=== PATIENT | female | born 1990 | race American Indian/Alaskan Native ===

== ENCOUNTER 2018-12-31 06:46 | Emergency (ER) | payer OTHER ==
[2018-12-31 07:15] LABS: Basophils # (Auto) 0.1 K/mm3 (0.0-0.1); Basophils % (Auto) 1.1 % (0.0-1.8); Eosinophils # (Auto) 0.6 K/mm3 (0.0-0.4); Eosinophils % (Auto) 5.7 % (0.0-4.3); Hematocrit 34.6 % (30.3-42.9); Hemoglobin 11.7 gm/dl (10.1-14.3); Lymphocytes # (Auto) 2.9 K/mm3 (1.2-5.4); Lymphocytes % (Auto) 26.8 % (13.4-35.0); Mean Corpuscular HGB Conc 34 % (30-34); Mean Corpuscular Volume 88 fl (79-97); Monocytes # (Auto) 0.8 K/mm3 (0.0-0.8); Monocytes % (Auto) 7.2 % (0.0-7.3); Platelet Count 293 K/mm3 (140-440); Red Blood Count 3.96 M/mm3 (3.65-5.03); Red Cell Distribution Width 18.6 % (13.2-15.2)
[2018-12-31 07:25] LABS: Bacteria,Urine 2+ /HPF (Negative); Bilirubin,Urine NEG (Negative); Blood,Urine SM (Negative); Color,Urine Yellow (Yellow); Mucus,Urine FEW /HPF; Protein,Urine <15 mg/dL mg/dL (Negative); Urobilinogen,Urine < 2.0 mg/dL (<2.0)
[2018-12-31 07:35] LABS: Alanine Aminotransferase 7 units/L (7-56); Albumin 4.3 g/dL (3.9-5); BUN/Creatinine Ratio 11; Blood Urea Nitrogen 8 mg/dL (7-17); Calcium 8.7 mg/dL (8.4-10.2); Hemolysis Index 11
[2018-12-31] MEDS ORDERED: FLAGYL PO ONE (08:34)
--- NOTE | 2018-12-31 08:42 | Emergency Department Report ---
ED Female HPI - General Chief complaint: Abdominal Pain Stated complaint: ABD PAIN VAG PAIN Time Seen by Provider: 12/31/18 08:22 Source: patient Mode of arrival: Ambulatory Limitations: No Limitations - History of Present Illness Initial comments: This is a 28-year-old female presents to ED complaining of vaginal discharge times one week. She also states that she had some dysuria. She states that normal respiratory cycle. She denies pelvic pain, fever, nausea vomiting or any other problems. MD Complaint: vaginal discharge, dysuria -: Gradual Are you Now?: No Last Menstrual Period: 12/18/18 EDC: 09/24/19 Associated Symptoms: vaginal discharge - Related Data Sexually active: No Previous Rx's Medication Instructions Recorded Last Taken Type Fluconazole [Diflucan TAB] 150 mg PO DAILY #2 tablet 12/31/18 Unknown Rx Nitrofurantoin Monohyd/M-Cryst 100 mg PO BID #14 capsule 12/31/18 Unknown Rx [Macrobid 100 mg Capsule] Allergies Allergy/AdvReac Type Severity Reaction Status Date / Time No Known Allergies Allergy Unverified 12/31/18 06:51 ED Review of Systems ROS: Stated complaint: ABD PAIN VAG PAIN Other details as noted in HPI Comment: All other systems reviewed and negative ED Past Medical Hx - Past Medical History Previous Medical History?: No - Surgical History Past Surgical History?: No - Social History Smoking Status: Former Smoker Substance Use Type: None - Medications Home Medications: Home Medications Medication Instructions Recorded Confirmed Last Taken Type Fluconazole [Diflucan TAB] 150 mg PO DAILY #2 tablet 12/31/18 Unknown Rx Nitrofurantoin Monohyd/M-Cryst 100 mg PO BID #14 capsule 12/31/18 Unknown Rx [Macrobid 100 mg Capsule] ED Physical Exam - General Limitations: No Limitations General appearance: alert, in no apparent distress - Head Head exam: Present: atraumatic, normocephalic - Eye Eye exam: Present: normal appearance - ENT ENT exam: Present: mucous membranes moist - Neck Neck exam: Present: normal inspection - Respiratory Respiratory exam: Present: normal lung sounds bilaterally. Absent: respiratory distress - Cardiovascular Cardiovascular Exam: Present: regular rate, normal rhythm. Absent: systolic murmur, diastolic murmur, rubs, gallop - GI/Abdominal GI/Abdominal exam: Present: soft, normal bowel sounds. Absent: distended, tenderness, guarding - Extremities Exam Extremities exam: Present: normal inspection - Back Exam Back exam: Present: normal inspection - Neurological Exam Neurological exam: Present: alert, oriented X3 - Psychiatric Psychiatric exam: Present: normal affect, normal mood - Skin Skin exam: Present: warm, dry, intact, normal color. Absent: rash ED Course Vital Signs 12/31/18 09:28 Temperature 97.9 F Pulse Rate 77 Respiratory 18 Rate Blood Pressure 130/72 [right] O2 Sat by Pulse 98 Oximetry ED Medical Decision Making - Lab Data Result diagrams: 12/31/18 07:05 12/31/18 07:05 - Medical Decision Making 28-year-old female presents with a vaginitis/urinary tract infection. Patient is presenting with candidate as seen in the urinalysis. Will treat patient for UTI, Sandi and BV Urinalysis is positive for use, bacteria. Patient denies any STDs stating she does not have an STD. Still advised patient to follow-up with [facility] for an STD screening. Discussed with patient her urinalysis results. Discussed follow-up at [facility] for [employer] exam Pap. Vital signs normal patient is in no acute distress. Critical care attestation.: If time is entered above; I have spent that time in minutes in the direct care of this critically ill patient, excluding procedure time. ED Disposition Clinical Impression: Vaginitis, Vulvovaginal candidiasis Disposition: TO HOME OR SELFCARE Is pt being admited?: No Does the pt Need Aspirin: No Condition: Stable Instructions: Bacterial Vaginosis (ED), Urinary Tract Infection in Women (ED), Vulvovaginal Candidiasis (ED), Abdominal Pain (ED) Additional Instructions: Make sure to follow up with the primary care physician as discussed. Take all your medications as you've been prescribed. If you have any worsening symptoms or develop new symptoms please return to ED immediately. Prescriptions: Fluconazole [Diflucan TAB] 150 mg PO DAILY #2 tablet Nitrofurantoin Monohyd/M-Cryst [Macrobid 100 mg Capsule] 100 mg PO BID #14 capsule Referrals: [facility] [Outside] - 3-5 Days [facility] [Outside] - 3-5 Days Forms: Work/School Release Form(ED) Time of Disposition: 08:50
[2018-12-31 09:29] VITALS: BP 130/72
== END 2018-12-31 09:28 | disposition home or self-care (01) ==
LOC: ED 06:46
DX: N76.0 Acute vaginitis (principal); B37.3 Candidiasis of vulva and vagina; Z87.891 Personal history of nicotine dependence
CPT/HCPCS: 36415; 80053; 81001; 84703; 85025; 99283

== ENCOUNTER 2019-02-19 19:35 | Emergency (ER) | payer OTHER ==
--- NOTE | 2019-02-19 20:26 | Emergency Department Report ---
Blank Doc - Documentation Documentation: 28 F C/O OF NAUSEA, VOMITING, DIARRHEA AND LOWER ABDOMINAL PAIN STARTED AFTER EATING POPPA MEGHAN PIJAKOB LAST NIGHT (NO ONE ELSE GOT SICK WHO ATE THE PIZZA). C/O OF DIZZINESS AND WEAKNESS. CALLED EMS TO HOME EARLIER BUT DIDNT TO WITH THEM. PLAN LABS AND ORTHOSTATICS
[2019-02-19 20:43] LABS: Basophils # (Auto) 0.1 K/mm3 (0.0-0.1); Basophils % (Auto) 1.1 % (0.0-1.8); Eosinophils # (Auto) 0.1 K/mm3 (0.0-0.4); Eosinophils % (Auto) 0.9 % (0.0-4.3); Hematocrit 36.8 % (30.3-42.9); Hemoglobin 12.5 gm/dl (10.1-14.3); Lymphocytes # (Auto) 1.8 K/mm3 (1.2-5.4); Lymphocytes % (Auto) 20.6 % (13.4-35.0); Mean Corpuscular HGB Conc 34 % (30-34); Mean Corpuscular Volume 90 fl (79-97); Monocytes # (Auto) 0.4 K/mm3 (0.0-0.8); Monocytes % (Auto) 5.1 % (0.0-7.3); Platelet Count 325 K/mm3 (140-440); Red Cell Distribution Width 14.8 % (13.2-15.2)
[2019-02-19 21:08] LABS: Alanine Aminotransferase 8 units/L (7-56); Albumin 4.1 g/dL (3.9-5); BUN/Creatinine Ratio 10; Blood Urea Nitrogen 6 mg/dL (7-17); Calcium 8.7 mg/dL (8.4-10.2); Hemolysis Index 4
[2019-02-19] MEDS ORDERED: NACL 0.9% 1000 ML 1,000 ML IV ONE (22:26)
[2019-02-19] MEDS ORDERED: ZOFRAN IV ONE (22:26)
[2019-02-19] MEDS ORDERED: BENTYL IM ONE (22:26)
--- NOTE | 2019-02-19 22:39 | Emergency Department Report ---
ED General Adult HPI - General Chief complaint: Dizziness Stated complaint: EMESIS/ABD CRAMPS Time Seen by Provider: 02/19/19 20:21 Source: patient Mode of arrival: Ambulatory Limitations: No Limitations - History of Present Illness Initial comments: 28 F C/O OF NAUSEA, VOMITING, DIARRHEA AND LOWER ABDOMINAL PAIN STARTED AFTER EATING POPDIONI URBINA LAST NIGHT (NO ONE ELSE GOT SICK WHO ATE THE PIZZA). C/O OF DIZZINESS AND WEAKNESS. CALLED EMS TO HOME EARLIER BUT DID NOT WANT TRANSPORT WITH EMS. Onset/Timin -: days(s) Location: abdomen Radiation: non-radiation Severity scale (0 -10): 5 Quality: aching Consistency: constant Improves with: none Worsens with: eating Associated Symptoms: nausea/vomiting Treatments Prior to Arrival: none - Related Data Previous Rx's Medication Instructions Recorded Last Taken Type Fluconazole [Diflucan TAB] 150 mg PO DAILY #2 tablet 12/31/18 Unknown Rx Nitrofurantoin Monohyd/M-Cryst 100 mg PO BID #14 capsule 12/31/18 Unknown Rx [Macrobid 100 mg Capsule] Dicyclomine [Bentyl] 10 mg PO QID PRN #30 capsule 02/20/19 Unknown Rx Ondansetron [Zofran Odt] 4 mg PO Q8HR #12 tab.rapdis 02/20/19 Unknown Rx Allergies Allergy/AdvReac Type Severity Reaction Status Date / Time No Known Allergies Allergy Unverified 12/31/18 06:51 ED Review of Systems ROS: Stated complaint: EMESIS/ABD CRAMPS Other details as noted in HPI Constitutional: denies: chills, fever Eyes: denies: eye pain, eye discharge, vision change ENT: denies: ear pain, throat pain Respiratory: denies: cough, shortness of breath, wheezing Cardiovascular: denies: chest pain, palpitations Endocrine: no symptoms reported Gastrointestinal: abdominal pain, nausea, vomiting, diarrhea. denies: constipation, hematemesis, melena, hematochezia Genitourinary: denies: urgency, dysuria, discharge Musculoskeletal: denies: back pain, joint swelling, arthralgia Skin: denies: rash, lesions Neurological: denies: headache, weakness, paresthesias Psychiatric: denies: anxiety, depression Hematological/Lymphatic: as per HPI ED Past Medical Hx - Social History Smoking Status: Never Smoker - Medications Home Medications: Home Medications Medication Instructions Recorded Confirmed Last Taken Type Fluconazole [Diflucan TAB] 150 mg PO DAILY #2 tablet 12/31/18 Unknown Rx Nitrofurantoin Monohyd/M-Cryst 100 mg PO BID #14 capsule 12/31/18 Unknown Rx [Macrobid 100 mg Capsule] Dicyclomine [Bentyl] 10 mg PO QID PRN #30 capsule 02/20/19 Unknown Rx Ondansetron [Zofran Odt] 4 mg PO Q8HR #12 tab.rapdis 02/20/19 Unknown Rx ED Physical Exam - General Limitations: No Limitations General appearance: alert, in no apparent distress - Head Head exam: Present: atraumatic, normocephalic - Eye Eye exam: Present: normal appearance, PERRL, EOMI Pupils: Present: normal accommodation - ENT ENT exam: Present: mucous membranes moist - Neck Neck exam: Present: normal inspection, full ROM. Absent: tenderness, meningismus, lymphadenopathy, thyromegaly - Respiratory Respiratory exam: Present: normal lung sounds bilaterally. Absent: respiratory distress, wheezes, rales, rhonchi, stridor, chest wall tenderness - Cardiovascular Cardiovascular Exam: Present: regular rate, normal rhythm, normal heart sounds. Absent: systolic murmur, diastolic murmur, rubs, gallop - GI/Abdominal GI/Abdominal exam: Present: soft, normal bowel sounds. Absent: distended, tenderness, guarding, rebound, rigid, bruit, hernia - Rectal Rectal exam: Present: deferred - Extremities Exam Extremities exam: Present: normal inspection, full ROM, normal capillary refill. Absent: tenderness, pedal edema, joint swelling, calf tenderness - Back Exam Back exam: Present: normal inspection, full ROM. Absent: tenderness, CVA tenderness (R), CVA tenderness (L), muscle spasm, paraspinal tenderness, rash noted - Neurological Exam Neurological exam: Present: alert, oriented X3, CN II-XII intact, normal gait, reflexes normal. Absent: motor sensory deficit - Psychiatric Psychiatric exam: Present: normal affect, normal mood - Skin Skin exam: Present: warm, dry, intact, normal color. Absent: rash ED Course Vital Signs 02/19/19 02/19/19 19:38 20:21 Temperature 98.1 F 98.1 F Pulse Rate 75 76 Respiratory 18 18 Rate Blood Pressure 122/85 122/85 O2 Sat by Pulse 99 98 Oximetry ED Medical Decision Making - Lab Data Result diagrams: 02/19/19 20:26 02/19/19 20:26 Labs 02/19/19 02/19/19 02/19/19 20:26 20:26 23:23 WBC 8.7 RBC 4.10 Hgb 12.5 Hct 36.8 MCV 90 MCH 31 MCHC 34 RDW 14.8 Plt Count 325 Lymph % (Auto) 20.6 [place] % (Auto) 5.1 Eos % (Auto) 0.9 Baso % (Auto) 1.1 Lymph # 1.8 [place] # 0.4 Eos # 0.1 Baso # 0.1 Seg Neutrophils % 72.3 H Seg Neutrophils # 6.3 Sodium 139 Potassium 3.5 L Chloride 100.9 Carbon Dioxide 25 Anion Gap 17 BUN 6 L Creatinine 0.6 L Estimated GFR > 60 BUN/Creatinine Ratio 10 Glucose 119 H Calcium 8.7 Total Bilirubin 0.20 AST 13 ALT 8 Alkaline Phosphatase 68 Total Protein 7.4 Albumin 4.1 Albumin/Globulin Ratio 1.2 Lipase 23 Urine Color Yellow Urine Turbidity Slightly-cloudy Urine pH 7.0 Ur Specific [place] 1.010 Urine Protein <15 mg/dl Urine Glucose (UA) Neg Urine Ketones Neg Urine Blood Neg Urine Nitrite Neg Urine Bilirubin Neg Urine Urobilinogen < 2.0 Ur Leukocyte Esterase Neg Urine WBC (Auto) 1.0 Urine RBC (Auto) 1.0 U Epithel Cells (Auto) 14.0 H Urine HCG, Qual Negative - Medical Decision Making n/v improved, abd pain resolved labs normal , no fever no chills no n/v pain is 0/10 plan: marry rizo, continue to hydrate follow up with pcp in 2-3 days return to ed if symptoms worsen. pt declines imaging , pt for dc to home in stable condition at this time. Critical care attestation.: If time is entered above; I have spent that time in minutes in the direct care of this critically ill patient, excluding procedure time. ED Disposition Clinical Impression: Nausea and vomiting Qualifiers: Vomiting type: unspecified Vomiting Intractability: non-intractable Qualified Code(s): R11.2 - Nausea with vomiting, unspecified Disposition: DC-01 TO HOME OR SELFCARE Is pt being admited?: No Does the pt Need Aspirin: No Condition: Stable Instructions: Acute Nausea and Vomiting (ED) Prescriptions: Dicyclomine [Bentyl] 10 mg PO QID PRN #30 capsule PRN Reason: abd spasm Ondansetron [Zofran Odt] 4 mg PO Q8HR #12 tab.rapdis Referrals: [facility] MD TARA [Primary Care Provider] - 3-5 Days Forms: Work/School Release Form(ED) Time of Disposition: 00:28
[2019-02-20 00:15] LABS: Bilirubin,Urine NEG (Negative); Blood,Urine NEG (Negative); Color,Urine Yellow (Yellow); Protein,Urine <15 mg/dL mg/dL (Negative); Urobilinogen,Urine < 2.0 mg/dL (<2.0)
[2019-02-20 00:18] LABS: HCG Qualitative,Urine Negative (Negative)
[2019-02-20 01:03] VITALS: BP 129/79
== END 2019-02-20 01:02 | disposition home or self-care (01) ==
LOC: ED 19:35
DX: R10.30 Lower abdominal pain, unspecified (principal); R11.2 Nausea with vomiting, unspecified; R19.7 Diarrhea, unspecified
CPT/HCPCS: 36415; 80053; 81001; 81025; 83690; 85025; 96361; 96372; 96374; 99283; J0500; J2405; J7030

== ENCOUNTER 2019-02-24 07:09 | Emergency (ER) | payer OTHER ==
[2019-02-24 07:40] VITALS: BP 133/83
--- NOTE | 2019-02-24 07:55 | Emergency Department Report ---
ED Female HPI - General Chief complaint: Urogenital-Female Stated complaint: VAGINAL DISCHARGE Source: patient Mode of arrival: Ambulatory Limitations: No Limitations - History of Present Illness Initial comments: This is a 28 year-old female who presents to the emergency room with vaginal discharge since yesterday. Her last menstrual cycle was 02/10/2019, A4, 1 and 3 miscarriages. She reports pelvic pain, back pain, urinary frequency, and urgency. She denies dysuria, nausea, vomiting, and hematuria. MD Complaint: vaginal discharge, possible STD Onset/Timin -: days(s) Location: suprapubic Radiation: non-radiating Severity: moderate Severity scale (0 -10): 7 Quality: cramping Consistency: intermittent Improves with: none Worsens with: none Are you Now?: No Last Menstrual Period: 02/10/19 EDC: 11/17/19 Associated Symptoms: vaginal discharge, abdominal pain. denies: vaginal bleeding, nausea/vomiting, fever/chills, headaches, loss of appetite, dysuria, hematuria, rash, seizure, shortness of breath, syncope, weakness - Related Data Sexually active: Yes : 6 Para: 2 A: 4 (1 & 3 miscarriages) Previous Rx's Medication Instructions Recorded Last Taken Type Fluconazole [Diflucan TAB] 150 mg PO DAILY #2 tablet 12/31/18 Unknown Rx Nitrofurantoin Monohyd/M-Cryst 100 mg PO BID #14 capsule 12/31/18 Unknown Rx [Macrobid 100 mg Capsule] Dicyclomine [Bentyl] 10 mg PO QID PRN #30 capsule 02/20/19 Unknown Rx Ondansetron [Zofran Odt] 4 mg PO Q8HR #12 tab.rapdis 02/20/19 Unknown Rx Allergies Allergy/AdvReac Type Severity Reaction Status Date / Time No Known Allergies Allergy Unverified 12/31/18 06:51 ED Review of Systems ROS: Stated complaint: VAGINAL DISCHARGE Other details as noted in HPI Constitutional: denies: chills, fever Respiratory: denies: cough, shortness of breath, wheezing Cardiovascular: denies: chest pain, palpitations Gastrointestinal: abdominal pain. denies: nausea, diarrhea Genitourinary: urgency, frequency, discharge. denies: dysuria Musculoskeletal: back pain. denies: joint swelling, arthralgia Skin: denies: rash, lesions Neurological: denies: headache, weakness, paresthesias Psychiatric: denies: anxiety, depression ED Past Medical Hx - Past Medical History Previous Medical History?: No - Surgical History Past Surgical History?: No - Social History Smoking Status: Never Smoker Substance Use Type: None - Medications Home Medications: Home Medications Medication Instructions Recorded Confirmed Last Taken Type Fluconazole [Diflucan TAB] 150 mg PO DAILY #2 tablet 12/31/18 Unknown Rx Nitrofurantoin Monohyd/M-Cryst 100 mg PO BID #14 capsule 12/31/18 Unknown Rx [Macrobid 100 mg Capsule] Dicyclomine [Bentyl] 10 mg PO QID PRN #30 capsule 02/20/19 Unknown Rx Ondansetron [Zofran Odt] 4 mg PO Q8HR #12 tab.rapdis 02/20/19 Unknown Rx ED Physical Exam - General Limitations: No Limitations General appearance: alert, in no apparent distress - Respiratory Respiratory exam: Present: normal lung sounds bilaterally. Absent: respiratory distress - Cardiovascular Cardiovascular Exam: Present: regular rate, normal rhythm. Absent: systolic murmur, diastolic murmur, rubs, gallop - GI/Abdominal GI/Abdominal exam: Present: soft, normal bowel sounds. Absent: distended, tenderness, guarding, rebound, rigid, organomegaly - External exam: Present: normal external exam Speculum exam: Present: vaginal discharge (malodorous frothy greenish yellow discharge). Absent: cervical discharge, vaginal bleeding, foreign body, tissue, laceration Bi-manual exam: Present: normal bi-manual exam - Back Exam Back exam: Absent: CVA tenderness (R), CVA tenderness (L) - Neurological Exam Neurological exam: Present: alert, oriented X3, normal gait - Psychiatric Psychiatric exam: Present: normal affect, normal mood - Skin Skin exam: Present: warm, dry, intact, normal color. Absent: rash ED Course Vital Signs 02/24/19 07:20 Temperature 98.0 F Pulse Rate 77 Respiratory 18 Rate Blood Pressure 133/83 O2 Sat by Pulse 98 Oximetry ED Medical Decision Making - Lab Data Lab Results 02/24/19 Range/Units 07:33 Urine Color Straw (Yellow) Urine Turbidity Slightly-cloudy (Clear) Urine pH 6.0 (5.0-7.0) Ur Specific [place] 1.003 (1.003-1.030) Urine Protein <15 mg/dl (Negative) mg/dL Urine Glucose (UA) Neg (Negative) mg/dL Urine Ketones Neg (Negative) mg/dL Urine Blood Neg (Negative) Urine Nitrite Neg (Negative) Urine Bilirubin Neg (Negative) Urine Urobilinogen < 2.0 (<2.0) mg/dL Ur Leukocyte Esterase Neg (Negative) Urine WBC (Auto) 1.0 (0.0-6.0) /HPF Urine RBC (Auto) < 1.0 (0.0-6.0) /HPF U Epithel Cells (Auto) 19.0 H (0-13.0) /HPF Urine Bacteria (Auto) 1+ (Negative) /HPF Urine HCG, Qual Negative (Negative) - Medical Decision Making Patient was examined by me. Vitals are stable and in no acute distress. Labs were obtained and a pelvic exam performed. Urinalysis possibly contaminated with slight epithelial cells and negative test. Wet prep negative for yeast, Trichomonas, and clue cells. Empirically treated with Rocephin 250 mg IM and azithromycin 1 g by mouth to cover gonorrhea or chlamydia. Instructed to follow up in 3-5 days for pending gonorrhea and chlamydia lab results. Discharged home in stable condition. Discussed prevention options. F/U with PCP or Health Department for full STI screening. Critical care attestation.: If time is entered above; I have spent that time in minutes in the direct care of this critically ill patient, excluding procedure time. ED Disposition Clinical Impression: Vaginal discharge, Pelvic pain, Exposure to STD Back pain Qualifiers: Back pain location: low back pain Chronicity: acute Back pain laterality: bilateral Sciatica presence: without sciatica Qualified Code(s): M54.5 - Low back pain Disposition: DC- TO HOME OR SELFCARE Is pt being admited?: No Does the pt Need Aspirin: No Condition: Stable Instructions: Sexually Transmitted Diseases (ED), Safe Sex (ED) Additional Instructions: Avoid drinking alcohol while taking antibiotics and for 24 hours after completion. Continue safe sexual intercourse. Follow up with Primary Care Provider or health department. Referrals: CURRY WADSWORTH MD [Primary Care Provider] - 3-5 Days [facility] [place] [Outside] - 3-5 Days [facility] [Provider Group] - 3-5 Days [facility] [Provider Group] - 3-5 Days [facility] [Provider Group] - 3-5 Days Forms: Work/School Release Form(ED), Accompanied Note Time of Disposition: 08:40
[2019-02-24 07:58] LABS: Bacteria,Urine 1+ /HPF (Negative); Bilirubin,Urine NEG (Negative); Blood,Urine NEG (Negative); Color,Urine Straw (Yellow); HCG Qualitative,Urine Negative (Negative); Protein,Urine <15 mg/dL mg/dL (Negative); RBC,Urine < 1.0 /HPF (0.0-6.0); Urobilinogen,Urine < 2.0 mg/dL (<2.0)
[2019-02-24] MEDS ORDERED: ZITHROMAX PO ONE (08:32)
[2019-02-24] MEDS ORDERED: XYLOCAINE 1% MPF 5 mL INFILTRATI ONE (08:32)
[2019-02-24] MEDS ORDERED: ROCEPHIN IM ONE (08:32)
== END 2019-02-24 09:13 | disposition home or self-care (01) ==
LOC: ED 07:09
DX: N89.8 Other specified noninflammatory disorders of vagina (principal); R10.2 Pelvic and perineal pain; M54.9 Dorsalgia, unspecified; Z20.2 Contact with and (suspected) exposure to infections with a predominantly sexual mode of transmission
CPT/HCPCS: 81001; 81025; 87210; 87591; J0696; 96372

== ENCOUNTER 2019-03-26 07:41 | Emergency (ER) | payer BC, OTHER ==
[2019-03-26 07:51] VITALS: BP 146/84
[2019-03-26 08:07] LABS: Basophils # (Auto) 0.1 K/mm3 (0.0-0.1); Basophils % (Auto) 1.3 % (0.0-1.8); Eosinophils # (Auto) 0.3 K/mm3 (0.0-0.4); Eosinophils % (Auto) 3.5 % (0.0-4.3); Hematocrit 34.3 % (30.3-42.9); Hemoglobin 11.8 gm/dl (10.1-14.3); Lymphocytes # (Auto) 3.1 K/mm3 (1.2-5.4); Lymphocytes % (Auto) 38.6 % (13.4-35.0); Mean Corpuscular HGB Conc 35 % (30-34); Mean Corpuscular Volume 90 fl (79-97); Monocytes # (Auto) 0.6 K/mm3 (0.0-0.8); Monocytes % (Auto) 7.8 % (0.0-7.3); Platelet Count 258 K/mm3 (140-440); Red Blood Count 3.79 M/mm3 (3.65-5.03); Red Cell Distribution Width 14.8 % (13.2-15.2)
[2019-03-26 08:24] LABS: Alanine Aminotransferase 12 units/L (7-56); Albumin 4.3 g/dL (3.9-5); BUN/Creatinine Ratio 17; Blood Urea Nitrogen 10 mg/dL (7-17); Calcium 9.4 mg/dL (8.4-10.2); Hemolysis Index 5
[2019-03-26 08:37] LABS: Bacteria,Urine 1+ /HPF (Negative); Bilirubin,Urine NEG (Negative); Blood,Urine SM (Negative); Color,Urine Yellow (Yellow); Mucus,Urine FEW /HPF; Protein,Urine <15 mg/dL mg/dL (Negative); Urobilinogen,Urine < 2.0 mg/dL (<2.0)
--- NOTE | 2019-03-26 11:08 | Ultrasound Report ---
CLINICAL DATA: See reason for exam. pelvic pain TECHNICAL DATA: Ultrasound uterus, real time with image documentation, and maternal evaluation after f irst trimester (> or = 14 weeks 0 days), transabdominal and transvaginal approach; single or first ge station. FINDINGS: Gestational sac is present measuring 0.8 cm in diameter estimated gestational age of 5 weeks 4 days, however no evidence of a yolk sac or pole. The right ovary is normal. 2.3 cm left ovarian cyst is present. IMPRESSION. 1. Small gestational sac as noted recommend clinical correlation and follow-up ultrasound to determin e if intrauterine is viable 2. No convincing evidence of an ectopic Signer Name: Christophe Osborn MD Signed: 03/26/2019 11:03 AM Workstation Name: [id number]
--- NOTE | 2019-03-26 11:27 | Emergency Department Report ---
ED Abdominal Pain HPI - General Chief Complaint: Abdominal Pain Stated Complaint: STOMACH PAIN Time Seen by Provider: 03/26/19 08:19 Source: patient Mode of arrival: Ambulatory Limitations: No Limitations - History of Present Illness Initial Comments: Isis is a 28-year-old female who presents with abdominal pain and nausea. She had a home positive home test. Last menstrual cycle 2 months ago. Nondescript abdominal pain which was transient. abdominal pain. denies fever. denies vaginal bleeding. MD Complaint: abdominal pain -: Gradual, days(s) (1) Severity: mild Quality: cramping, dull Consistency: constant Improves With: nothing Worsens With: nothing Associated Symptoms: nausea - Related Data Previous Rx's Medication Instructions Recorded Last Taken Type Fluconazole [Diflucan TAB] 150 mg PO DAILY #2 tablet 12/31/18 Unknown Rx Nitrofurantoin Monohyd/M-Cryst 100 mg PO BID #14 capsule 12/31/18 Unknown Rx [Macrobid 100 mg Capsule] Dicyclomine [Bentyl] 10 mg PO QID PRN #30 capsule 02/20/19 Unknown Rx Ondansetron [Zofran Odt] 4 mg PO Q8HR #12 tab.rapdis 02/20/19 Unknown Rx Allergies Allergy/AdvReac Type Severity Reaction Status Date / Time No Known Allergies Allergy Unverified 12/31/18 06:51 ED Review of Systems ROS: Stated complaint: STOMACH PAIN Other details as noted in HPI Comment: All other systems reviewed and negative Constitutional: denies: fever, malaise Respiratory: denies: cough Cardiovascular: denies: chest pain ED Past Medical Hx - Past Medical History Previous Medical History?: No - Surgical History Past Surgical History?: No - Social History Smoking Status: Never Smoker Substance Use Type: None - Medications Home Medications: Home Medications Medication Instructions Recorded Confirmed Last Taken Type Fluconazole [Diflucan TAB] 150 mg PO DAILY #2 tablet 12/31/18 Unknown Rx Nitrofurantoin Monohyd/M-Cryst 100 mg PO BID #14 capsule 12/31/18 Unknown Rx [Macrobid 100 mg Capsule] Dicyclomine [Bentyl] 10 mg PO QID PRN #30 capsule 02/20/19 Unknown Rx Ondansetron [Zofran Odt] 4 mg PO Q8HR #12 tab.rapdis 06/23/19 Unknown Rx ED Physical Exam - General Limitations: No Limitations General appearance: alert, in no apparent distress - Head Head exam: Present: atraumatic, normocephalic - Eye Eye exam: Present: normal appearance - ENT ENT exam: Present: mucous membranes moist - Neck Neck exam: Present: normal inspection, full ROM - Respiratory Respiratory exam: Present: normal lung sounds bilaterally. Absent: respiratory distress, wheezes, rales, rhonchi - Cardiovascular Cardiovascular Exam: Present: regular rate, normal rhythm, normal heart sounds. Absent: systolic murmur, diastolic murmur, rubs, gallop - GI/Abdominal GI/Abdominal exam: Present: soft, normal bowel sounds. Absent: distended, guarding, rebound - Extremities Exam Extremities exam: Present: normal inspection - Back Exam Back exam: Present: normal inspection - Neurological Exam Neurological exam: Present: alert, oriented X3 - Psychiatric Psychiatric exam: Present: normal affect, normal mood - Skin Skin exam: Present: warm, dry, intact, normal color. Absent: rash ED Course Vital Signs 03/26/19 07:46 Temperature 98.4 F Pulse Rate 82 Respiratory 18 Rate Blood Pressure 146/84 O2 Sat by Pulse 100 Oximetry ED Medical Decision Making - Lab Data Result diagrams: 03/26/19 07:56 03/26/19 07:56 - Radiology Data Radiology results: report reviewed Ultrasound: Positive gestational sac without concurrent evidence of IUP viability - Medical Decision Making Latera has new diagnosis of . HCG level above the indiscriminate zone. I strongly encourage return in 2 days for repeat ultrasound to determine viability and rule out ectopic . Critical care attestation.: If time is entered above; I have spent that time in minutes in the direct care of this critically ill patient, excluding procedure time. ED Disposition Clinical Impression: , Abdominal pain Disposition: DC-01 TO HOME OR SELFCARE Is pt being admited?: No Does the pt Need Aspirin: No Condition: Stable Additional Instructions: Please return to the ER in 2 days for a repeat ultrasound. The ultrasound was unable to determine viability. We must also rule out tubal .
== END 2019-03-26 11:46 | disposition home or self-care (01) ==
LOC: ED 07:41
DX: O26.891 Other specified pregnancy related conditions, first trimester (principal); R10.2 Pelvic and perineal pain; R11.0 Nausea; Z3A.01 Less than 8 weeks gestation of pregnancy
CPT/HCPCS: 36415; 76801; 76817; 80053; 81001; 84702; 85025

== ENCOUNTER 2019-03-30 07:41 | Emergency (ER) | payer BC ==
[2019-03-30 07:52] VITALS: BP 137/83
[2019-03-30] MEDS ORDERED: TYLENOL PO ONE (08:31)
[2019-03-30 08:47] LABS: Basophils # (Auto) 0.1 K/mm3 (0.0-0.1); Basophils % (Auto) 1.3 % (0.0-1.8); Eosinophils # (Auto) 0.3 K/mm3 (0.0-0.4); Eosinophils % (Auto) 4.3 % (0.0-4.3); Hematocrit 34.5 % (30.3-42.9); Hemoglobin 11.6 gm/dl (10.1-14.3); Lymphocytes # (Auto) 2.4 K/mm3 (1.2-5.4); Lymphocytes % (Auto) 30.4 % (13.4-35.0); Mean Corpuscular HGB Conc 34 % (30-34); Mean Corpuscular Volume 92 fl (79-97); Monocytes # (Auto) 0.6 K/mm3 (0.0-0.8); Monocytes % (Auto) 7.8 % (0.0-7.3); Platelet Count 249 K/mm3 (140-440); Red Blood Count 3.75 M/mm3 (3.65-5.03); Red Cell Distribution Width 14.6 % (13.2-15.2)
--- NOTE | 2019-03-30 08:49 | Emergency Department Report ---
HPI - General Chief Complaint: Abdominal Pain Time Seen by Provider: 03/30/19 08:18 - HPI HPI: 28-year-old -Congolese female presents to the emergency department with some mid abdominal pain and for reevaluation of the viability of her . Patient was here 4 days ago on 03/26/19 and was found to have a beta hCG of about 3500 and ultrasound that showed a gestational sac without evidence of a yolk sac or pole. She denies any vaginal bleeding, dysuria, vaginal discharge, fever. She has not taken anything for her symptoms prior to presentation. She has an RUNSTITCHING MACHINE OPERATOR scheduled but has not seen them yet to establish care. ED Past Medical Hx - Past Medical History Previous Medical History?: No - Surgical History Past Surgical History?: No - Social History Smoking Status: Never Smoker Substance Use Type: None - Medications Home Medications: Home Medications Medication Instructions Recorded Confirmed Last Taken Type Fluconazole [Diflucan TAB] 150 mg PO DAILY #2 tablet 12/31/18 Unknown Rx Nitrofurantoin Monohyd/M-Cryst 100 mg PO BID #14 capsule 12/31/18 Unknown Rx [Macrobid 100 mg Capsule] Dicyclomine [Bentyl] 10 mg PO QID PRN #30 capsule 02/20/19 Unknown Rx Ondansetron [Zofran Odt] 4 mg PO Q8HR #12 tab.rapdis 02/20/19 Unknown Rx ED Review of Systems ROS: Stated complaint: STOMACH PAIN Other details as noted in HPI Comment: All other systems reviewed and negative Constitutional: denies: chills, fever Respiratory: denies: cough, shortness of breath Cardiovascular: denies: chest pain, palpitations Gastrointestinal: abdominal pain. denies: vomiting Genitourinary: denies: dysuria, discharge Musculoskeletal: denies: back pain, arthralgia Physical Exam - Physical Exam Vital Signs: Vital Signs 03/30/19 07:48 Temperature 98.4 F Pulse Rate 77 Respiratory 16 Rate Blood Pressure 137/83 O2 Sat by Pulse 100 Oximetry Physical Exam: GENERAL: The patient is well-developed well-nourished. HENT: Normocephalic. Atraumatic. Patient has moist mucous membranes. EYES: Extraocular motions are intact. NECK: Supple. Trachea is midline. CHEST/LUNGS: Clear to auscultation. There is no respiratory distress noted. HEART/CARDIOVASCULAR: Regular. There is no tachycardia. There is no murmur. ABDOMEN: Abdomen is soft, nontender. Patient has normal bowel sounds. There is no abdominal distention. SKIN: Skin is warm and dry. NEURO: The patient is awake, alert, and oriented. The patient is cooperative. The patient has normal speech. MUSCULOSKELETAL: There is no tenderness or deformity. There is no evidence of acute injury. ED Course Vital Signs 03/30/19 07:48 Temperature 98.4 F Pulse Rate 77 Respiratory 16 Rate Blood Pressure 137/83 O2 Sat by Pulse 100 Oximetry - Consultations Consultation #1: 03/30/19 10:[address] Aguirre, RUNSTITCHING MACHINE OPERATOR lease administration analyst, who listened to the case presentation including the decline in the beta hCG and the ultrasound showing a gestational sac without a yolk sac or pole. She agrees that the patient can be safely discharged from the emergency department at this time but they have agreed to see the patient in the office in the next few days and she will be worked in. ED Medical Decision Making - Lab Data Result diagrams: 03/30/19 08:34 03/30/19 08:34 - Radiology Data Radiology results: report reviewed ULTRASOUND OB LESS THAN EQUAL TO 14 WEEKS FETUS ULTRASOUND OB TRANSVAGINAL HISTORY: Abdominal pain during COMPARISON: None. TECHNIQUE: Routine transabdominal and transvaginal OB ultrasound performed. FINDINGS: Uterus: Mildly enlarged measuring 10.5 x 4.4 x 5.8 cm. Gestational Sac: A small gestational sac is identified with average diameter measuring 10.5 mm which correlates with a 5 week 6 day . Yolk Sac: Not identified Fetus/Embryo: Not identified at this time. Embryonic/ cardiac activity: Not identified. Placenta: Too small for evaluation. Ovaries: The right ovary is normal in size and appearance with normal blood flow, measuring 3.0 x 2.2 x 1.7 cm. The left ovary is normal in size and appearance with normal blood flow, measuring 3.7 x 2.0 x 2.4 cm. Hypoechoic space-occupying mass in the left ovary with peripheral vascularity is most likely the corpus luteum. Additional findings: None. IMPRESSION A small intrauterine gestational sac is identified but no pole, yolk sac or heart rate could be demonstrated at this time. This may represent a very early normal intrauterine . Blighted ovum cannot be excluded. Close interval follow-up with quantitative beta hCG levels is recommended. - Medical Decision Making This patient presents with some abdominal pain and a reevaluation of her for viability. The previous visit, 4 days ago, showed a beta hCG of about 3000 and an ultrasound that showed a gestational sac without pole or yield sac. Today the beta hCG is down to about 2300. The ultrasound is consistent with the one from 3 days ago. With the decline in the beta hCG, this is most likely consistent with an impending miscarriage. I spoke with the RUNSTITCHING MACHINE OPERATOR on-call who agrees that the patient is safe for discharge home at this time and has agreed to work him in to be seen in their office in the next few days. The patient will return to the emergency Department with any worsening of her symptoms, development of moderate to heavy vaginal bleeding, or with any acute distress. The patient is awake, verbalizes understanding and agrees to the plan. - Differential Diagnosis , impending miscarriage, fibroids, UTI Critical Care Time: No Critical care attestation.: If time is entered above; I have spent that time in minutes in the direct care of this critically ill patient, excluding procedure time. ED Disposition Clinical Impression: Threatened miscarriage Abdominal pain Qualifiers: Abdominal location: unspecified location Qualified Code(s): R10.9 - Unspecified abdominal pain Disposition: DC-01 TO HOME OR SELFCARE Is pt being admited?: No Condition: Stable Instructions: Threatened Miscarriage (ED), Abdominal Pain (ED) Additional Instructions: Please call the RUNSTITCHING MACHINE OPERATOR office of Dr. Aguirre to make an appointment. When you call, tell them that she were in the emergency department and that we spoke with Dr. Aguirre and that they are work you in for an appointment. In the meantime, continue with your vitamins. You can take Tylenol, using weight-based dosing on the back of the bottle, as needed for any discomfort. Return to the emergency Department with any worsening of your symptoms, or if you start to develop any moderate or significant vaginal bleeding, or with any acute distress. Referrals: ALEX GARCIA MD [Staff Physician] - [facility] Time of Disposition: 10:38
[2019-03-30 09:25] LABS: Alanine Aminotransferase 8 units/L (7-56); Albumin 4.2 g/dL (3.9-5); BUN/Creatinine Ratio 18; Blood Urea Nitrogen 11 mg/dL (7-17); Calcium 8.8 mg/dL (8.4-10.2); Hemolysis Index 2
[2019-03-30 09:37] LABS: Bacteria,Urine 1+ /HPF (Negative); Bilirubin,Urine NEG (Negative); Blood,Urine NEG (Negative); Color,Urine Yellow (Yellow); Mucus,Urine FEW /HPF; Protein,Urine <15 mg/dL mg/dL (Negative); Urobilinogen,Urine < 2.0 mg/dL (<2.0); WBC,Urine < 1.0 /HPF (0.0-6.0)
--- NOTE | 2019-03-30 10:06 | Ultrasound Report ---
ULTRASOUND OB LESS THAN EQUAL TO 14 WEEKS FETUS ULTRASOUND OB TRANSVAGINAL HISTORY: Abdominal pain during COMPARISON: None. TECHNIQUE: Routine transabdominal and transvaginal OB ultrasound performed. FINDINGS: Uterus: Mildly enlarged measuring 10.5 x 4.4 x 5.8 cm. Gestational Sac: A small gestational sac is identified with average diameter measuring 10.5 mm which correlates with a 5 week 6 day . Yolk Sac: Not identified Fetus/Embryo: Not identified at this time. Embryonic/ cardiac activity: Not identified. Placenta: Too small for evaluation. Ovaries: The right ovary is normal in size and appearance with normal blood flow, measuring 3.0 x 2. 2 x 1.7 cm. The left ovary is normal in size and appearance with normal blood flow, measuring 3.7 x 2.0 x 2.4 cm. Hypoechoic space-occupying mass in the left ovary with peripheral vascularity is most likely the corpus luteum. Additional findings: None. IMPRESSION A small intrauterine gestational sac is identified but no pole, yolk sac or heart rate co uld be demonstrated at this time. This may represent a very early normal intrauterine . Blig hted ovum cannot be excluded. Close interval follow-up with quantitative beta hCG levels is recommend ed. Signer Name: Trent Jose Jr, MD Signed: 03/30/2019 10:02 AM Workstation Name: [id number]
== END 2019-03-30 10:49 | disposition home or self-care (01) ==
LOC: ED 07:41
DX: O20.0 Threatened abortion (principal); Z3A.01 Less than 8 weeks gestation of pregnancy; Z79.899 Other long term (current) drug therapy
CPT/HCPCS: 36415; 76801; 76817; 80053; 81001; 83690; 84702; 85025; 99284

== ENCOUNTER 2019-04-06 01:03 | Emergency (ER) | payer BC ==
[2019-04-06 01:16] VITALS: BP 141/81
[2019-04-06 02:16] LABS: Alanine Aminotransferase 8 units/L (7-56); BUN/Creatinine Ratio 22; Blood Urea Nitrogen 11 mg/dL (7-17); Calcium 8.8 mg/dL (8.4-10.2); Hemolysis Index 1
[2019-04-06 02:29] LABS: Bilirubin,Urine NEG (Negative); Blood,Urine LG (Negative); Color,Urine Yellow (Yellow); Mucus,Urine FEW /HPF; Protein,Urine <15 mg/dL mg/dL (Negative); Urobilinogen,Urine < 2.0 mg/dL (<2.0)
[2019-04-06 02:31] LABS: Basophils % (Auto) 1.3 % (0.0-1.8); Eosinophils # (Auto) 0.3 K/mm3 (0.0-0.4); Eosinophils % (Auto) 3.3 % (0.0-4.3); Hematocrit 34.2 % (30.3-42.9); Hemoglobin 11.7 gm/dl (10.1-14.3); Lymphocytes # (Auto) 2.8 K/mm3 (1.2-5.4); Lymphocytes % (Auto) 35.5 % (13.4-35.0); Mean Corpuscular HGB Conc 34 % (30-34); Mean Corpuscular Volume 91 fl (79-97); Mean Platelet Volume 8.6 fl (6-12); Monocytes # (Auto) 0.5 K/mm3 (0.0-0.8); Monocytes % (Auto) 6.2 % (0.0-7.3); Platelet Count 263 K/mm3 (140-440); Red Blood Count 3.74 M/mm3 (3.65-5.03); Red Cell Distribution Width 14.8 % (13.2-15.2)
[2019-04-06 02:32] LABS: Basophils # (Auto) 0.1 K/mm3 (0.0-0.1)
[2019-04-06] MEDS ORDERED: NORCO 5/325 ONE (03:11)
[2019-04-06] MEDS ORDERED: ZOFRAN ODT ONE (03:11)
[2019-04-06] MEDS ORDERED: NORCO 5/325 PO ONE (03:16)
[2019-04-06] MEDS ORDERED: ZOFRAN ODT PO ONE ×2 (03:16→04:23)
[2019-04-06] MEDS ORDERED: PERCOCET 5/325 PO ONE (04:23)
--- NOTE | 2019-04-06 05:20 | Emergency Department Report ---
ED Female HPI - General Chief complaint: Abdominal Pain Stated complaint: POSS MISSCARRIAGE Time Seen by Provider: 04/06/19 03:20 Source: patient Mode of arrival: Ambulatory Limitations: No Limitations - History of Present Illness Initial comments: Patient is a A4 and 28-year-old [place] female who presents to the ED with complaint of acute onset persistent severe pelvic pain with heavy vaginal bleeding for the last 1 week. Patient states that shortness to this ED and had a threatened miscarriage about a week ago and states that she has been having vaginal bleeding for the last 1 week with severe pelvic pain. Patient states that she was scheduled to be evaluated by the COAT JOINER LOCKSTITCH physician 3 days ago but she failed to honour the COAT JOINER LOCKSTITCH appointment. Patient states that she had been taking pain medications at home and that in the last 2 days, the pain worsened and that the vaginal bleeding is persistent. Patient denies dizziness, light headedness, chest pain, shortness of breath, vaginal discharge, dysuria, low back pain, fever, chills, headache, syncope or seizures. MD Complaint: vaginal bleeding, pelvic pain -: Sudden, week(s) (1) Location: suprapubic Radiation: suprapubic Severity: severe Severity scale (0 -10): 8 Quality: cramping, sharp, aching Consistency: constant Improves with: none Worsens with: none Are you Now?: Yes (Miscarriage) Associated Symptoms: denies other symptoms, vaginal bleeding, abdominal pain, nausea/vomiting. denies: vaginal discharge, loss of appetite, hematuria, shortness of breath, syncope, other - Related Data Sexually active: Yes : 6 Para: 2 A: 4 Previous Rx's Medication Instructions Recorded Last Taken Type Fluconazole [Diflucan TAB] 150 mg PO DAILY #2 tablet 12/31/18 Unknown Rx Nitrofurantoin Monohyd/M-Cryst 100 mg PO BID #14 capsule 12/31/18 Unknown Rx [Macrobid 100 mg Capsule] Dicyclomine [Bentyl] 10 mg PO QID PRN #30 capsule 02/20/19 Unknown Rx Ondansetron [Zofran Odt] 4 mg PO Q8HR #12 tab.rapdis 02/20/19 Unknown Rx Acetaminophen/Codeine [Tylenol 1 tab PO Q6H PRN #15 tab 04/06/19 Unknown Rx /Codeine # 3 tab] Ibuprofen [Motrin] 600 mg PO Q8H PRN #24 tablet 04/06/19 Unknown Rx Ondansetron [Zofran ODT TAB] 8 mg PO Q8HR PRN #20 tab.rapdis 04/06/19 Unknown Rx Allergies Allergy/AdvReac Type Severity Reaction Status Date / Time No Known Allergies Allergy Verified 04/06/19 03:14 ED Review of Systems ROS: Stated complaint: POSS MISSCARRIAGE Other details as noted in HPI Constitutional: denies: chills, fever Eyes: denies: eye pain, eye discharge, vision change ENT: denies: ear pain, throat pain Respiratory: denies: cough, shortness of breath, wheezing Cardiovascular: denies: chest pain, palpitations Endocrine: no symptoms reported Gastrointestinal: abdominal pain (pelvic pain), nausea, vomiting. denies: diarrhea Genitourinary: other (vaginal bleeding). denies: urgency, dysuria, discharge Musculoskeletal: denies: back pain, joint swelling, arthralgia Skin: denies: rash, lesions Neurological: denies: headache, weakness, paresthesias Psychiatric: denies: anxiety, depression Hematological/Lymphatic: denies: easy bleeding, easy bruising ED Past Medical Hx - Past Medical History Previous Medical History?: No - Surgical History Additional Surgical History: D&C, hernia repair, ear sx - Social History Smoking Status: Never Smoker Substance Use Type: None - Medications Home Medications: Home Medications Medication Instructions Recorded Confirmed Last Taken Type Fluconazole [Diflucan TAB] 150 mg PO DAILY #2 tablet 12/31/18 Unknown Rx Nitrofurantoin Monohyd/M-Cryst 100 mg PO BID #14 capsule 12/31/18 Unknown Rx [Macrobid 100 mg Capsule] Dicyclomine [Bentyl] 10 mg PO QID PRN #30 capsule 02/20/19 Unknown Rx Ondansetron [Zofran Odt] 4 mg PO Q8HR #12 tab.rapdis 02/20/19 Unknown Rx Acetaminophen/Codeine [Tylenol 1 tab PO Q6H PRN #15 tab 04/06/19 Unknown Rx /Codeine # 3 tab] Ibuprofen [Motrin] 600 mg PO Q8H PRN #24 tablet 04/06/19 Unknown Rx Ondansetron [Zofran ODT TAB] 8 mg PO Q8HR PRN #20 tab.rapdis 04/06/19 Unknown Rx ED Physical Exam - General Limitations: No Limitations General appearance: alert, in no apparent distress - Head Head exam: Present: atraumatic, normocephalic, normal inspection - Eye Eye exam: Present: normal appearance, PERRL, EOMI Pupils: Present: normal accommodation - ENT ENT exam: Present: normal exam, normal orophraynx, mucous membranes moist, TM's normal bilaterally, normal external ear exam - Neck Neck exam: Present: normal inspection, full ROM. Absent: tenderness, lymphadenopathy - Respiratory Respiratory exam: Present: normal lung sounds bilaterally. Absent: respiratory distress, wheezes, rales, rhonchi, chest wall tenderness, accessory muscle use, prolonged expiratory - Cardiovascular Cardiovascular Exam: Present: regular rate, normal rhythm, normal heart sounds. Absent: systolic murmur, diastolic murmur, rubs, gallop - GI/Abdominal GI/Abdominal exam: Present: soft, tenderness (suprapubic), normal bowel sounds. Absent: guarding, rebound, hyperactive bowel sounds, hypoactive bowel sounds, organomegaly, bruit, pulsatile mass - Rectal Rectal exam: Present: deferred - Bi-manual exam: Present: other (deferred, patient preference) - Extremities Exam Extremities exam: Present: normal inspection, full ROM, normal capillary refill - Back Exam Back exam: Present: normal inspection, full ROM. Absent: tenderness, CVA tenderness (R), CVA tenderness (L), muscle spasm, paraspinal tenderness, vertebral tenderness - Neurological Exam Neurological exam: Present: alert, oriented X3, CN II-XII intact, normal gait, reflexes normal - Psychiatric Psychiatric exam: Present: normal affect, normal mood - Skin Skin exam: Present: warm, dry, intact, normal color. Absent: rash ED Course Vital Signs 04/06/19 04/06/19 01:12 05:33 Temperature 97.8 F Pulse Rate 71 68 Respiratory 18 16 Rate Blood Pressure 141/81 O2 Sat by Pulse 99 97 Oximetry - Reevaluation(s) Reevaluation #1: 04/06/19 05:30 This is a 28-year-old -[place] female who presents to the ED with severe pelvic pain, having been diagnosed with threatened miscarriage a week ago with steadily declining serial hCG Quant studies. In the ED, patient is alert and oriented 3 and is not in distress but in pain with normal vital signs. This was also reviewed and are all unremarkable and acceptable with hCG Quant which is 245.9. The previous hCG Quant studies for 03/26/2019 was 3045, and that 03/30/2019 was 2359. Clearly the hCG Quant has significantly decreased since 03/26/2019, and this means that the miscarriage is nearly complete. Patient was scheduled to follow-up in the [facility] physician but failed to honour the appointment. Patient presented to the ED today with worsening pelvic pain. In the ED, patient was treated for pain and at the time discharge from the ED, patient's pain was moderate but was much better than when she first got to the ED. Patient discharged home on pain medications and advised to follow-up with the COAT JOINER LOCKSTITCH physician by contacting the office today to schedule a follow-up appointment. Patient is advised to return to the ED immediately if symptoms get worse. ED Medical Decision Making - Lab Data Result diagrams: 04/06/19 01:32 04/06/19 01:38 - Medical Decision Making This is a 28-year-old -[place] female who presents to the ED with severe pelvic pain, having been diagnosed with threatened miscarriage a week ago with steadily declining serial hCG Quant studies. In the ED, patient is alert and oriented 3 and is not in distress but in pain with normal vital signs. This was also reviewed and are all unremarkable and acceptable with hCG Quant which is 245.9. The previous hCG Quant studies for 03/26/2019 was 3045, and that 03/30/2019 was 2359. Clearly the hCG Quant has significantly decreased since 03/26/2019, and this means that the miscarriage is nearly complete. The 2 most recent transvaginal US reports showed no evidence of yolk sac, or pole and Heart Rate. Patient was scheduled to follow-up in the [facility] physician but failed to honour the appointment. Patient presented to the ED today with worsening pelvic pain. In the ED, patient was treated for pain and at the time discharge from the ED, patient's pain was moderate but was much better than when she first got to the ED. Patient discharged home on pain medications and advised to follow-up with the [employer] LOCKSTITCH physician by contacting the office today to schedule a follow-up appointment. Patient is advised to return to the ED immediately if symptoms get worse. 08/07/19 05:36 - Differential Diagnosis Incomplete miscarriage, Pelvic pain, acute UTI; Critical care attestation.: If time is entered above; I have spent that time in minutes in the direct care of this critically ill patient, excluding procedure time. ED Disposition Clinical Impression: Pelvic pain, Incomplete Disposition: TO HOME OR SELFCARE Is pt being admited?: No Does the pt Need Aspirin: No Condition: Stable Instructions: Spontaneous Miscarriage (ED), Abdominal Pain (ED) Additional Instructions: Take medications with food, drink plenty of fluids and follow up with your COAT JOINER LOCKSTITCH physician in 2-3 days for reevaluation. Return to the ED immediately if symptoms get worse. Prescriptions: Ibuprofen [Motrin] 600 mg PO Q8H PRN #24 tablet PRN Reason: Pain Acetaminophen/Codeine [Tylenol /Codeine # 3 tab] 1 tab PO Q6H PRN #15 tab PRN Reason: Pain , Severe (7-10) Ondansetron [Zofran ODT TAB] 8 mg PO Q8HR PRN #20 tab.rapdis PRN Reason: Nausea Referrals: CURRY WADSWORTH MD [Primary Care Provider] - 3-5 Days Forms: Work/School Release Form(ED) Time of Disposition: 05:13 Print Language: HUNGARIAN
== END 2019-04-06 05:33 | disposition home or self-care (01) ==
LOC: ED 01:03
DX: O03.4 Incomplete spontaneous abortion without complication (principal); Z79.899 Other long term (current) drug therapy; Z98.890 Other specified postprocedural states; Z3A.00 Weeks of gestation of pregnancy not specified
CPT/HCPCS: 36415; 80053; 81001; 84702; 84703; 85025; 86900; 86901; Q0162

== ENCOUNTER 2019-05-25 21:38 | Emergency (ER) | payer BC ==
[2019-05-25 22:06] VITALS: BP 123/74
[2019-05-25 23:50] LABS: Bacteria,Urine 1+ /HPF (Negative); Bilirubin,Urine NEG (Negative); Blood,Urine NEG (Negative); Color,Urine Yellow (Yellow); Mucus,Urine FEW /HPF; Protein,Urine <15 mg/dL mg/dL (Negative); Urobilinogen,Urine < 2.0 mg/dL (<2.0)
[2019-05-25 23:51] LABS: HCG Qualitative,Urine Positive (Negative)
[2019-05-26] MEDS ORDERED: METOCLOPRAMIDE 10 MG/2 ML INJ IV ONE (00:22)
[2019-05-26] MEDS ORDERED: ACETAMINOPHEN 500 MG TAB PO ONE (00:22)
[2019-05-26] MEDS ORDERED: SODIUM CHLORIDE 0.9% 1000 ML 1,000 ML IV ONE (00:22)
[2019-05-26 00:47] LABS: Basophils # (Auto) 0.1 K/mm3 (0.0-0.1); Basophils % (Auto) 1.4 % (0.0-1.8); Eosinophils # (Auto) 0.3 K/mm3 (0.0-0.4); Eosinophils % (Auto) 3.3 % (0.0-4.3); Hematocrit 25.4 % (30.3-42.9); Hemoglobin 8.3 gm/dl (10.1-14.3); Lymphocytes % (Auto) 24.9 % (13.4-35.0); Mean Corpuscular HGB Conc 33 % (30-34); Mean Corpuscular Volume 79 fl (79-97); Monocytes # (Auto) 0.7 K/mm3 (0.0-0.8); Platelet Count 323 K/mm3 (140-440); Red Cell Distribution Width 19.2 % (13.2-15.2)
[2019-05-26 00:55] LABS: INR 1.05 (0.87-1.13); Partial Thromboplastin Time 26.5 Sec. (24.2-36.6)
[2019-05-26 01:05] LABS: Alanine Aminotransferase 7 units/L (7-56); Albumin 4.1 g/dL (3.9-5); BUN/Creatinine Ratio 13; Blood Urea Nitrogen 5 mg/dL (7-17); Calcium 8.6 mg/dL (8.4-10.2); Hemolysis Index 3
--- NOTE | 2019-05-26 01:53 | Emergency Department Report ---
ED Chest Pain HPI - General Chief Complaint: Chest Pain Stated Complaint: CP/NAUSEA/VOMITING/R SHOULDER Time Seen by Provider: 05/26/19 00:14 Source: patient Mode of arrival: Ambulatory Limitations: No Limitations - History of Present Illness Initial Comments: This is a 28-year-old female nontoxic, well nourished in appearance, no acute signs of distress presents to the ED with c/o of right sided chest pain with radiation to shoulder and back x2 days. Patient stated has some shortness of breathe. Patient stated just found out she is this week but denies knowing how far along. Patient stated has some nausea with no vomiting. Denies any vaginal bleeding. Denies any pelvic or abdominal pain. Patient describes pain as aching. Patient denies any upper respiratory symptoms. Patient denies any hemoptysis, fever, chills, vomiting, headache, stiff neck, numbness, tingling, abdominal pain. Patient denies any recent travels or long car rides. Patient denies any recent surgeries or any sick contacts. Patient denies any drug allergies. MD Complaint: chest pain -: days(s) (2) Pain Location: right chest Pain Radiation: RUE, back Severity: mild Severity scale (0 -10): 8 Quality: aching Consistency: intermittent Improves With: nothing Worsens With: nothing re: nausea. denies: vomting, diaphoresis, dyspnea, sense of impending doom Other Symptoms: denies: cough, fever, syncope, rash, acid taste in mouth, leg swelling, palpitations, burping Treatments Prior to Arrival: none Aspirin use within the Past 7 Days: (0) No - Related Data Previous Rx's Medication Instructions Recorded Last Taken Type Fluconazole [Diflucan TAB] 150 mg PO DAILY #2 tablet 12/31/18 Unknown Rx Nitrofurantoin Monohyd/M-Cryst 100 mg PO BID #14 capsule 12/31/18 Unknown Rx [Macrobid 100 mg Capsule] Dicyclomine [Bentyl] 10 mg PO QID PRN #30 capsule 02/20/19 Unknown Rx Ondansetron [Zofran Odt] 4 mg PO Q8HR #12 tab.rapdis 02/20/19 Unknown Rx Acetaminophen/Codeine [Tylenol 1 tab PO Q6H PRN #15 tab 04/06/19 Unknown Rx /Codeine # 3 tab] Ibuprofen [Motrin] 600 mg PO Q8H PRN #24 tablet 04/06/19 Unknown Rx Ondansetron [Zofran ODT TAB] 8 mg PO Q8HR PRN #20 tab.rapdis 04/06/19 Unknown Rx Allergies Allergy/AdvReac Type Severity Reaction Status Date / Time No Known Allergies Allergy Verified 04/06/19 03:14 Heart Score - HEART Score History: Slightly suspicious EKG: Normal Age: < 45 Risk factors: No known risk factors Troponin: < normal limit HEART Score: 0 ED Review of Systems ROS: Stated complaint: CP/NAUSEA/VOMITING/R SHOULDER Other details as noted in HPI Constitutional: denies: chills, fever Eyes: denies: eye pain, eye discharge, vision change ENT: denies: ear pain, throat pain Respiratory: denies: cough, shortness of breath, wheezing Cardiovascular: chest pain. denies: palpitations Endocrine: no symptoms reported Gastrointestinal: nausea. denies: abdominal pain, vomiting, diarrhea Genitourinary: denies: urgency, dysuria, discharge Musculoskeletal: back pain. denies: joint swelling, arthralgia Skin: denies: rash, lesions Neurological: denies: headache, weakness, paresthesias Psychiatric: denies: anxiety, depression Hematological/Lymphatic: denies: easy bleeding, easy bruising ED Past Medical Hx - Past Medical History Previous Medical History?: No - Surgical History Additional Surgical History: D&C, hernia repair, ear sx - Social History Smoking Status: Never Smoker Substance Use Type: None - Medications Home Medications: Home Medications Medication Instructions Recorded Confirmed Last Taken Type Fluconazole [Diflucan TAB] 150 mg PO DAILY #2 tablet 12/31/18 Unknown Rx Nitrofurantoin Monohyd/M-Cryst 100 mg PO BID #14 capsule 12/31/18 Unknown Rx [Macrobid 100 mg Capsule] Dicyclomine [Bentyl] 10 mg PO QID PRN #30 capsule 02/20/19 Unknown Rx Ondansetron [Zofran Odt] 4 mg PO Q8HR #12 tab.rapdis 02/20/19 Unknown Rx Acetaminophen/Codeine [Tylenol 1 tab PO Q6H PRN #15 tab 04/06/19 Unknown Rx /Codeine # 3 tab] Ibuprofen [Motrin] 600 mg PO Q8H PRN #24 tablet 04/06/19 Unknown Rx Ondansetron [Zofran ODT TAB] 8 mg PO Q8HR PRN #20 tab.rapdis 04/06/19 Unknown Rx ED Physical Exam - General Limitations: No Limitations General appearance: alert, in no apparent distress - Head Head exam: Present: atraumatic, normocephalic - Eye Eye exam: Present: normal appearance - Neck Neck exam: Present: normal inspection. Absent: tenderness, meningismus, full ROM, lymphadenopathy - Respiratory Respiratory exam: Present: normal lung sounds bilaterally. Absent: respiratory distress, wheezes, rales, rhonchi, stridor, chest wall tenderness, accessory muscle use, decreased breath sounds, prolonged expiratory - Cardiovascular Cardiovascular Exam: Present: regular rate, normal rhythm, normal heart sounds. Absent: bradycardia, tachycardia, irregular rhythm, systolic murmur, diastolic murmur, rubs, gallop - GI/Abdominal GI/Abdominal exam: Present: soft, normal bowel sounds. Absent: distended, tenderness, guarding, rebound, rigid, diminished bowel sounds - Extremities Exam Extremities exam: Present: normal inspection, full ROM, normal capillary refill. Absent: tenderness - Back Exam Back exam: Present: normal inspection, full ROM. Absent: tenderness, CVA te nderness (R), CVA tenderness (L), muscle spasm, paraspinal tenderness, vertebral tenderness, rash noted - Neurological Exam Neurological exam: Present: alert, oriented X3, normal gait - Psychiatric Psychiatric exam: Present: normal affect, normal mood - Skin Skin exam: Present: warm, dry, intact, normal color. Absent: rash ED Course Vital Signs 05/25/19 21:57 Temperature 98.6 F Pulse Rate 62 Respiratory 12 Rate Blood Pressure 123/74 O2 Sat by Pulse 100 Oximetry - Reevaluation(s) Reevaluation #1: 05/26/19 01:52 Patient is speaking in full sentences with no signs of distress noted. - Consultations Consultation #1: 05/26/19 01:53 Patient has been consulted with Fred Monterroso about patient history, physical exam, and labs and agrees to ED plan of care. OSVALDO score - Osvaldo Score Age > 65: (0) No Aspirin use within the Past 7 Days: (0) No 3 or more CAD Risk Factors: (0) No 2 or more Angina events in past 24 hrs: (0) No Known CAD with more than 50% Stenosis: (0) No Elevated Cardiac Markers: (0) No ST Deviation Greater than 0.5mm: (0) No OSVALDO Score: 0 ED Medical Decision Making - Lab Data Result diagrams: 05/26/19 00:29 05/26/19 00:29 - Medical Decision Making This is a 28-year-old female that presents with , chest pain, shortness of breathe, and nausea. Patient is stable and was examined by me. OSVALDO and HEART score 0 pints. Wells criteria for DVT/SVT/PE 0 points. Positive d-dimmer. EKG normal sinus rhythm with no significant changes in ST. Patient refused chest xray and CTA. Patient was given strict instructions and education on benefits of CTA the patient still refused. Patient signed AGAINST MEDICAL ADVICE. Labs within normal limits. Negative troponin. Patient received Reglan and Tylenol in the ED which she stated his symptoms are improving subsided. Carolynn nelson was instructed to Follow-up with a OBGYN/primary care/nuclear powerplant mechanic doctor JOSELO or if symptoms worsen and continue return to emergency room as soon as possible. At time of signing AMA, the patient does not seem toxic or ill in appearance. No acute signs of distress noted. Patient agrees to treatment plan of care. No further questions noted by the patient. Critical care attestation.: If time is entered above; I have spent that time in minutes in the direct care o f this critically ill patient, excluding procedure time. ED Disposition Clinical Impression: Shortness of breath, Nausea Chest pain Qualifiers: Chest pain type: unspecified Qualified Code(s): R07.9 - Chest pain, unspecified Qualifiers: Weeks of gestation: unspecified Qualified Code(s): Z34.90 - Encounter for supervision of normal , unspecified, unspecified trimester Disposition: DC-07 LEFT AGAINST MED ADVICE Is pt being admited?: No Does the pt Need Aspirin: No Condition: Undetermined Instructions: Chest Pain (ED) Additional Instructions: Follow-up with a OBGYN/primary care/nuclear powerplant mechanic doctor JOSELO or if symptoms worsen and continue return to emergency room as soon as possible. Your condition may be serious as instructed and educated today in the ER but you decided to leave AGAINST MEDICAL ADVICE. It is highly recommended to see a provider as soon as possible to rule out serious complications that was described to you during your ED stay. Referrals: PRIMARY CARE, [Primary Care Provider] - 3-5 Days [facility] [Outside] - JOSELO [facility] [Outside] - LIVE CAMPOS MD [Staff Physician] - AVELINO RUFF MD [Staff Physician] - JOSELO Forms: AMA Form, Accompanied Note, Work/School Release Form(ED)
== END 2019-05-26 02:30 | disposition left against medical advice (07) ==
LOC: ED 21:38
DX: O26.899 Other specified pregnancy related conditions, unspecified trimester (principal); R07.89 Other chest pain; R06.02 Shortness of breath; R11.0 Nausea; Z34.90 Encounter for supervision of normal pregnancy, unspecified, unspecified trimester
CPT/HCPCS: 36415; 80053; 81001; 81025; 83690; 84484; 85025; 85379; 85610; 85730; 93005; 93010; 96374; 99283; J2765; J7030

== ENCOUNTER 2019-10-22 00:58 | Emergency (ER) | payer SELFPAY ==
[2019-10-22 01:37] VITALS: BP 134/78
[2019-10-22 01:38] LABS: Hematocrit 29.1 % (30.3-42.9); Hemoglobin 9.3 gm/dl (10.1-14.3); Mean Corpuscular HGB Conc 32 % (30-34); Mean Corpuscular Volume 73 fl (79-97); Platelet Count 300 K/mm3 (140-440); Red Blood Count 4.02 M/mm3 (3.65-5.03); Red Cell Distribution Width 19.9 % (13.2-15.2)
--- NOTE | 2019-10-22 01:40 | Emergency Department Report ---
ED General Adult HPI - General Chief complaint: Dizziness Stated complaint: FATIGUE LIGHTHEADED HEADACHES Time Seen by Provider: 10/22/19 01:31 Source: patient Mode of arrival: Ambulatory Limitations: No Limitations - History of Present Illness Initial comments: Ms. Dupont is a 29-year-old female without significant past medical history whose had fatigue lightheadedness mild shortness of breath for the past month. She has been eating a lot of ice recently. She is concerned for anemia. Her sister required a transfusion last month. She denies heavy vaginal bleeding. Last menstrual cycle 1 week ago. She denies any pain. She denies headache. She denies chest pain. Denies abdominal pain. -: Gradual, month(s) (1) Consistency: constant Improves with: none Worsens with: other (Exertion) Associated Symptoms: shortness of breath - Related Data Previous Rx's Medication Instructions Recorded Last Taken Type Fluconazole [Diflucan TAB] 150 mg PO DAILY #2 tablet 12/31/18 Unknown Rx Nitrofurantoin Monohyd/M-Cryst 100 mg PO BID #14 capsule 12/31/18 Unknown Rx [Macrobid 100 mg Capsule] Dicyclomine [Bentyl] 10 mg PO QID PRN #30 capsule 02/20/19 Unknown Rx Ondansetron [Zofran Odt] 4 mg PO Q8HR #12 tab.rapdis 02/20/19 Unknown Rx Acetaminophen/Codeine [Tylenol 1 tab PO Q6H PRN #15 tab 04/06/19 Unknown Rx /Codeine # 3 tab] Ibuprofen [Motrin] 600 mg PO Q8H PRN #24 tablet 04/06/19 Unknown Rx Ondansetron [Zofran ODT TAB] 8 mg PO Q8HR PRN #20 tab.rapdis 04/06/19 Unknown Rx Ferrous Sulfate [Feosol 325 MG tab] 325 mg PO TID #90 tablet 10/22/19 Unknown Rx Allergies Allergy/AdvReac Type Severity Reaction Status Date / Time No Known Allergies Allergy Verified 04/06/19 03:14 ED Review of Systems ROS: Stated complaint: FATIGUE LIGHTHEADED HEADACHES Other details as noted in HPI Comment: All other systems reviewed and negative Constitutional: other (Fatigue). denies: fever Respiratory: shortness of breath Cardiovascular: denies: chest pain Neurological: denies: headache, numbness, paresthesias ED Past Medical Hx - Past Medical History Previous Medical History?: No - Surgical History Past Surgical History?: Yes Additional Surgical History: D&C, hernia repair, ear sx - Social History Smoking Status: Never Smoker Substance Use Type: None - Medications Home Medications: Home Medications Medication Instructions Recorded Confirmed Last Taken Type Fluconazole [Diflucan TAB] 150 mg PO DAILY #2 tablet 12/31/18 Unknown Rx Nitrofurantoin Monohyd/M-Cryst 100 mg PO BID #14 capsule 12/31/18 Unknown Rx [Macrobid 100 mg Capsule] Dicyclomine [Bentyl] 10 mg PO QID PRN #30 capsule 02/20/19 Unknown Rx Ondansetron [Zofran Odt] 4 mg PO Q8HR #12 tab.rapdis 02/20/19 Unknown Rx Acetaminophen/Codeine [Tylenol 1 tab PO Q6H PRN #15 tab 04/06/19 Unknown Rx /Codeine # 3 tab] Ibuprofen [Motrin] 600 mg PO Q8H PRN #24 tablet 04/06/19 Unknown Rx Ondansetron [Zofran ODT TAB] 8 mg PO Q8HR PRN #20 tab.rapdis 04/06/19 Unknown Rx Ferrous Sulfate [Feosol 325 MG tab] 325 mg PO TID #90 tablet 10/22/19 Unknown Rx ED Physical Exam - General Limitations: No Limitations General appearance: alert, in no apparent distress - Head Head exam: Present: atraumatic, normocephalic - Eye Eye exam: Present: normal appearance - ENT ENT exam: Present: mucous membranes moist - Neck Neck exam: Present: normal inspection, full ROM - Respiratory Respiratory exam: Present: normal lung sounds bilaterally. Absent: respiratory distress, wheezes, rales, rhonchi - Cardiovascular Cardiovascular Exam: Present: regular rate, normal rhythm, normal heart sounds. Absent: systolic murmur, diastolic murmur, rubs, gallop - GI/Abdominal GI/Abdominal exam: Present: soft, normal bowel sounds. Absent: distended, tenderness, guarding, rebound - Extremities Exam Extremities exam: Present: normal inspection - Neurological Exam Neurological exam: Present: alert, oriented X3 - Psychiatric Psychiatric exam: Present: normal affect, normal mood - Skin Skin exam: Present: warm, dry, intact, normal color. Absent: rash ED Course Vital Signs 10/22/19 01:09 Temperature 98.3 F Pulse Rate 81 Respiratory 18 Rate Blood Pressure 134/78 O2 Sat by Pulse 99 Oximetry ED Medical Decision Making - Lab Data Result diagrams: 10/22/19 01:20 10/22/19 01:20 - Medical Decision Making Ms. Calderon is a 29-year-old female presents with 1 week of fatigue lightheadedness craving ice. Upon review of electronic record, in May new anemia seen hemoglobin 8. Previous labs showed normal hemoglobin. Mild anemia today hemoglobin 9. Prescribed iron tablets. Discharged home. With normal vital signs and normal physical examination, I do not suspect cardiac disease or infectious process. Critical care attestation.: If time is entered above; I have spent that time in minutes in the direct care of this critically ill patient, excluding procedure time. ED Disposition Clinical Impression: Anemia Disposition: DC-01 TO HOME OR SELFCARE Is pt being admited?: No Does the pt Need Aspirin: No Condition: Stable Instructions: Iron Deficiency Anemia (ED) Prescriptions: Ferrous Sulfate [Feosol 325 MG tab] 325 mg PO TID #90 tablet Referrals: CURRY WADSWORTH MD [Staff Physician] - 3-5 Days Forms: Work/School Release Form(ED)
[2019-10-22 01:52] LABS: BUN/Creatinine Ratio 15; Blood Urea Nitrogen 9 mg/dL (7-17); Calcium 9.2 mg/dL (8.4-10.2); Hemolysis Index 2
[2019-10-22 04:17] LABS: Hypochromasia 1+; Total Cells Counted 100
[2019-10-22 04:19] LABS: Schistocytes Few
[2019-10-22 04:20] LABS: Burr Cells Few; Platelet Estimate Consistent w Auto
== END 2019-10-22 02:47 | disposition home or self-care (01) ==
LOC: ED 00:58
DX: D64.9 Anemia, unspecified (principal); Z79.899 Other long term (current) drug therapy
CPT/HCPCS: 36415; 80048; 84703; 85007; 85025

== ENCOUNTER 2020-01-03 07:33 | Day surgery (SDC) | payer MEDICAID ==
--- NOTE | 2020-01-03 07:40 | Emergency Department Report ---
ED HPI - General Chief complaint: Vaginal Bleeding Stated complaint: POSS MISSCARRIAGE Time Seen by Provider: 01/03/20 07:39 Source: patient Mode of arrival: Ambulatory Limitations: No Limitations - History of Present Illness Initial comments: 29 yo AA female comes to ER with vag bleed [id number] miscarriage2 LMP 09/20/19 Pt saw ob yesterday and was told she needs surgery in AM However bleeding has increased and she has inc in abd pain so she comes to ER VSS no hypotension no tachycardia no fever denies recent fever, sob, cough or exposure to covid19; no recent travel No abnormal discharge/back pain/nausea or vomiting NKDA No hme meds denies cig/etoh/drug use MD Complaint: abdominal pain, vaginal bleeding -: Gradual Location: pelvis Quality: cramping Consistency: constant Improves with: none Worsens with: none Associated symptoms: vaginal bleeding, abdominal pain. denies: nausea/vomiting, vaginal discharge, dysuria, headache, vision changes, malaise, dysparuenia, rash, seizure, shortness of breath, syncope, weakness Vaginal bleeding: heavy :: Yes Number of weeks : 10 OB History - Current : other OB History - Previous Pregnancies: other Last menstrual period: 09/20/19 Pre-bety care: followed by OB - Related Data : 7 Para: 2 Ab: 2 (miscarriage 2) Allergies Allergy/AdvReac Type Severity Reaction Status Date / Time No Known Allergies Allergy Verified 04/06/19 03:14 ED Review of Systems ROS: Stated complaint: POSS MISSCARRIAGE Other details as noted in HPI Comment: All other systems reviewed and negative ED Past Medical Hx - Past Medical History Previous Medical History?: No - Surgical History Past Surgical History?: Yes Additional Surgical History: D&C, hernia repair, ear sx - Family History Family history: no significant - Social History Smoking Status: Never Smoker Substance Use Type: None ED Physical Exam - General Limitations: No Limitations General appearance: alert, in no apparent distress - Head Head exam: Present: atraumatic, normocephalic - Eye Eye exam: Present: normal appearance - ENT ENT exam: Present: mucous membranes moist - Neck Neck exam: Present: normal inspection - Respiratory Respiratory exam: Present: normal lung sounds bilaterally. Absent: respiratory distress - Cardiovascular Cardiovascular Exam: Present: regular rate, normal rhythm. Absent: systolic murmur, diastolic murmur, rubs, gallop - GI/Abdominal GI/Abdominal exam: Present: soft, normal bowel sounds - Extremities Exam Extremities exam: Present: normal inspection - Back Exam Back exam: Present: normal inspection - Neurological Exam Neurological exam: Present: alert, oriented X3 - Psychiatric Psychiatric exam: Present: normal affect, normal mood - Skin Skin exam: Present: warm, dry, intact, normal color. Absent: rash ED Course Vital Signs 01/03/20 07:37 Temperature 98.5 F Pulse Rate 84 Respiratory 18 Rate Blood Pressure 164/89 O2 Sat by Pulse 100 Oximetry ED Medical Decision Making - Lab Data Result diagrams: 01/03/20 08:14 01/03/20 07:39 - Radiology Data Radiology results: report reviewed, image reviewed - Medical Decision Making Labs 01/03/20 01/03/20 01/03/20 07:39 08:01 08:14 WBC 10.7 RBC 3.95 Hgb 10.2 Hct 31.1 MCV 79 MCH 26 L MCHC 33 RDW 21.8 H Plt Count 262 Sodium 136 L Potassium 3.6 Chloride 103.4 Carbon Dioxide 20 L Anion Gap 16 BUN 7 Creatinine 0.5 L Estimated GFR > 60 BUN/Creatinine Ratio 14 Glucose 110 H Calcium 9.2 HCG, Quant Urine Color Red Urine Turbidity Clear Urine pH 6.0 Ur Specific [place] 1.006 Urine Protein 100 mg/dl Urine Glucose (UA) Neg Urine Ketones Neg Urine Blood Lg Urine Nitrite Neg Urine Bilirubin Neg Urine Urobilinogen < 2.0 Ur Leukocyte Esterase Tr Urine WBC (Auto) 125.0 H Urine RBC (Auto) > 182.0 U Epithel Cells (Auto) 4.0 Blood Type Antibody Screen 01/03/20 01/03/20 08:14 08:14 WBC RBC Hgb Hct MCV MCH MCHC RDW Plt Count Sodium Potassium Chloride Carbon Dioxide Anion Gap BUN Creatinine Estimated GFR BUN/Creatinine Ratio Glucose Calcium HCG, Quant 619.8 H Urine Color Urine Turbidity Urine pH Ur Specific [place] Urine Protein Urine Glucose (UA) Urine Ketones Urine Blood Urine Nitrite Urine Bilirubin Urine Urobilinogen Ur Leukocyte Esterase Urine WBC (Auto) Urine RBC (Auto) U Epithel Cells (Auto) Blood Type O POSITIVE Antibody Screen Negative Vital Signs 01/03/20 07:37 Temperature 98.5 F Pulse Rate 84 Respiratory 18 Rate Blood Pressure 164/89 O2 Sat by Pulse 100 Oximetry labs noted Hcg 618 Rh pos 125 WBC in urine INT 1L NS dilaudid for pain US images sent to sylvie DARLING 09 OB paged- discussed pt case- per prior US report [id number] NPO pt to OR today 1 GM ancef per OB 0940 OR consent obtained/ blood consent obtained Pt updated on plan of care and need to go to OR dilaudid given with some relief. 952 professional skater to OR for D/C - Differential Diagnosis ro ab/ectopic Critical care attestation.: If time is entered above; I have spent that time in minutes in the direct care of this critically ill patient, excluding procedure time. ED Disposition Clinical Impression: Incomplete Disposition: OP ADMIT IP TO THIS HOSP Is pt being admited?: Yes Does the pt Need Aspirin: No Condition: Stable Time of Disposition: 09:54
[2020-01-03 08:25] LABS: Hematocrit 31.1 % (30.3-42.9); Hemoglobin 10.2 gm/dl (10.1-14.3); Mean Corpuscular HGB Conc 33 % (30-34); Mean Corpuscular Volume 79 fl (79-97); Platelet Count 262 K/mm3 (140-440); Red Blood Count 3.95 M/mm3 (3.65-5.03)
[2020-01-03 08:27] LABS: Red Cell Distribution Width 21.8 % (13.2-15.2)
[2020-01-03 08:45] LABS: BUN/Creatinine Ratio 14; Blood Urea Nitrogen 7 mg/dL (7-17); Calcium 9.2 mg/dL (8.4-10.2); Hemolysis Index 3
[2020-01-03 08:59] LABS: Bilirubin,Urine NEG (Negative); Blood,Urine LG (Negative); Color,Urine Red (Yellow); Urobilinogen,Urine < 2.0 mg/dL (<2.0)
[2020-01-03 09:03] LABS: RBC,Urine > 182.0 /HPF (0.0-6.0)
[2020-01-03] MEDS ORDERED: SODIUM CHLORIDE 0.9% 1000 ML 1,000 ML IV ONE (09:12)
[2020-01-03] MEDS ORDERED: HYDROcodone/ACETAMINOPHEN 10-325MG TAB PO ONE (09:13)
[2020-01-03] MEDS ORDERED: HYDROmorphone 1 MG/1 ML INJ IV ONE (09:16)
--- NOTE | 2020-01-03 09:37 | Ultrasound Report ---
ULTRASOUND OB LESS THAN 14 WEEKS FETUS ULTRASOUND OB TRANSVAGINAL HISTORY: Vaginal bleeding during COMPARISON: None. TECHNIQUE: Routine transabdominal and transvaginal OB ultrasound performed. FINDINGS: Uterus: Mildly enlarged measuring 10.0 x 5.4 x 6.4 cm. Gestational Sac: Not seen Yolk Sac: Not seen Fetus/Embryo: Not seen Endometrium: The endometrium is thickened up to 1.7 cm. Ovaries: The right ovary is normal in size and appearance with normal blood flow, measuring 3.0 x 3. 0 x 3.5 cm. The left ovary is normal in size and appearance with normal blood flow, measuring 4.5 x 2.1 x 1.5 cm. Additional findings: None. IMPRESSION No intrauterine is visualized at this time. The endometrial stripe is thickened measuring 1 .7 cm. Considerations include a very early or spontaneous with retained products o f conception. Please note that an ectopic is not entirely excluded at this time. Recommend correlation with the patient's clinical presentation and quantitative beta hCG levels. Follow-up is r ecommended. Signer Name: Trent Jose Jr, MD Signed: 01/03/2020 9:33 AM Workstation Name: [id number]
[2020-01-03] MEDS ORDERED: HYDROmorphone 1 MG/1 ML INJ IV PRN ×2 (09:59→11:25)
[2020-01-03] MEDS ORDERED: ceFAZolin/NS 1 GM/50 ML 1 GM/50 ML BAG IV NR (10:00)
--- NOTE | 2020-01-03 10:12 | Short Stay Summary ---
Short Stay Documentation Date of service: 01/03/20 Narrative H&P: 29y/o @ 10 weeks saumya presents to the ED with pelvic pain and bleeding. The patient had been previously diagnosed with an embryonic demise and was scheduled for a suction dilation and curettage tomorrow. She states having passage of tissue. - History Principal diagnosis: Incomplete Past Medical History: No medical history Past Surgical History: No surgical history Social history: single - Allergies and Medications Current Medications: Allergies No Known Allergies Allergy (Verified 04/06/19 03:14) Active Medications Hydromorphone HCl (Dilaudid) 0.5 mg IV Q2H PRN PRN Reason: Pain, Moderate (4-6) Sodium Chloride (Nacl 0.9% 1000 Ml) 1,000 mls @ 999 mls/hr IV BOLUS ONE Stop: 01/03/20 10:12 Last Admin: 01/03/20 09:39 Dose: 999 mls/hr Documented by: Cefazolin Sodium (Ancef/Ns 1 Gm/50 Ml) 1 gm in 50 mls @ 100 mls/hr IV PREOP NR; Protocol Stop: 01/03/20 21:00 - Physical exam General appearance: mild distress Integumentary: no rash HEENT: Atraumatic Lungs: Clear to auscultation Breasts: deferred Heart: Regular rate Gastrointestinal: normal Female Genitourinary: deferred Rectal Exam: deferred Extremities: no ischemia Neurological: Normal gait - Brief post op/procedure progress note Date of procedure: 01/03/20 Pre-op diagnosis: Incomplete Post-op diagnosis: same Procedure: Suction dilatation and curettage Anesthesia: GETA Surgeon: ALEX GARCIA Estimated blood loss: 50-100ml Pathology: list (Products of conception) Specimen disposition: to lab Condition: stable - Hospital course Hospital course: The patient was admitted through the emergency department with a complaint of vaginal bleeding and pelvic pain. The patient has been previously diagnosed with an embryonic demise. She reported heavy vaginal bleeding and passage of tissue at home. Pelvic ultrasound demonstrated retained products of conception. The patient was admitted for a suction dilatation and curettage. Her procedure was uncomplicated and the patient was discharged home. - Disposition Condition at discharge: Good Disposition: DC-01 TO HOME OR SELFCARE Short Stay Discharge Plan Activity: other (Pelvic rest for 2 weeks) Diet: regular Additional Instructions: Schedule follow-up with Dr. Garcia in 2 weeks Prescriptions: Ibuprofen [Motrin] 800 mg PO Q8HR PRN #60 tablet PRN Reason: Pain, Mild (1-3) HYDROcodone/APAP 5-325 [[place] 5/325] 1 each PO Q6HR PRN #20 tablet PRN Reason: Pain
--- NOTE | 2020-01-03 11:24 | Anesthesia Consultation ---
Anesthesia Consult and Med Hx - Airway Anesthetic Teeth Evaluation: Good ROM Head & Neck: Adequate Mental/Hyoid Distance: Adequate Mallampati Class: Class I Intubation Access Assessment: Good - Pulmonary Exam CTA: Yes - Cardiac Exam Cardiac Exam: RRR - Pre-Operative Health Status ASA Pre-Surgery Classification: ASA1 Proposed Anesthetic Plan: General
[2020-01-03] MEDS ORDERED: MEPERIDINE 25 MG/1 ML INJ IV PRN (11:25)
--- NOTE | 2020-01-03 11:25 | Anesthesia Day of Surgery ---
Anesthesia Day of Surgery - Day of Surgery Patient Examined: Yes Patient H&P Reviewed: Yes Patient is NPO: Yes Beta Blockers: Yes
[2020-01-03] MEDS ORDERED: SODIUM CHLORIDE 0.9% IRR 1,500 ML BOTTLE IR ONE (12:05)
--- NOTE | 2020-01-03 12:09 | Operative Report ---
Operative Report Operative Report: Date of surgery: January 03, 2020 Preoperative diagnosis: Incomplete Postoperative diagnosis: Same as above Procedure: Suction dilatation and curettage Surgeon: Zoe Aguirre M.D. Anesthesia: Gen. endotracheal anesthesia Estimated blood loss: 75 mL Findings: Products of conception Indication: 29-year-old -0-3-2 at 10 weeks estimated gestational age with findings of an incomplete . Procedure: The patient was taken to the operating room and given general endotracheal anesthesia without complication. The patient is prepped and draped in a normal sterile fashion. A bivalve speculum was placed in the patient's vagina and a single-tooth tenaculum placed on the anterior lip of the cervix. The uterine cavity was then sounded. The cervical os was then dilated with evidence of products of conception being expelled from the cervical loss. The ring forcep was used to remove the tissue from the cervical loss. A number 8 Singaporean curved cannula was placed to suction and found to be adequate. The cannula was then gently inserted into the dilated cervical os. Evacuation of the uterine contents were performed. Sharp curettage and endometrial surface was performed until cry was achieved. The cannula was then gently reinserted into the uterine cavity to evacuate any additional contents. After removal of the cannula there was no evidence of any active bleeding. The vaginal instruments were then removed atraumatically. The patient was then successfully extubated and taken to the recovery room in stable condition. All sponge laps and needle counts were correct x2. Pathology consisted of products of conception.
[2020-01-03] MEDS ORDERED: ONDANSETRON 4 MG/2 ML INJ IV PRN (12:22)
[2020-01-03 13:23] VITALS: BP 119/58
--- NOTE | 2020-01-03 14:57 | Post Anesthesia Evaluation ---
- Post Anesthesia Evaluation Patient Participated: Yes Airway Patent: Yes Stable Respiratory Function: Yes Nausea/Vomiting: No Temp > 96.8F: Yes Pain Manageable: Yes Adequeate Hydration: Yes Anesthesia Complications: No
== END 2020-01-03 13:50 | disposition home or self-care (01) ==
LOC: ED 07:33 → OR 13:07
PROVIDERS: ATTEND Obstetrics & Gynecology
DX: O03.4 Incomplete spontaneous abortion without complication (principal); Z3A.10 10 weeks gestation of pregnancy; Z98.890 Other specified postprocedural states; Z79.899 Other long term (current) drug therapy
CPT/HCPCS: 36415; 59812; 76801; 76817; 80048; 81001; 84702; 85027; 86850; 86900; 86901; 88305; J0690; J1170; J2175; J7030

== ENCOUNTER 2020-09-09 00:06 | Emergency (ER) | payer BC, MEDICAID ==
[2020-09-09 00:59] VITALS: BP 152/87
[2020-09-09 02:16] LABS: Basophils # (Auto) 0.1 K/mm3 (0.0-0.1); Basophils % (Auto) 1.2 % (0.0-1.8); Eosinophils # (Auto) 0.1 K/mm3 (0.0-0.4); Eosinophils % (Auto) 2.1 % (0.0-4.3); Hematocrit 29.8 % (30.3-42.9); Hemoglobin 9.9 gm/dl (10.1-14.3); Lymphocytes # (Auto) 1.2 K/mm3 (1.2-5.4); Lymphocytes % (Auto) 19.5 % (13.4-35.0); Mean Corpuscular HGB Conc 33 % (30-34); Mean Corpuscular Volume 74 fl (79-97); Monocytes # (Auto) 0.8 K/mm3 (0.0-0.8); Monocytes % (Auto) 12.9 % (0.0-7.3); Platelet Count 256 K/mm3 (140-440); Red Blood Count 4.04 M/mm3 (3.65-5.03)
[2020-09-09 02:20] LABS: Red Cell Distribution Width 24.1 % (13.2-15.2)
--- NOTE | 2020-09-09 02:32 | Emergency Department Report ---
ED General Adult HPI - General Chief complaint: Abdominal Pain Stated complaint: CHEST PAIN/COUGH/THROAT PAIN Time Seen by Provider: 09/09/20 02:27 Source: patient Mode of arrival: Ambulatory Limitations: No Limitations - History of Present Illness Initial comments: 30-year-old -Congolese female presents to the emergency room for epigastric discomfort with nausea and vomiting intermittently. Patient also complains of a cough and increased acid production. States anytime she eats food it just mares in her epigastric area and travels up to her throat. Patient states she started to get a cough. She reports she is her last menstrual period was 07/10/2020. She denies any vaginal bleeding or vaginal discharge. She is 7 para 2. She has not started care at this time. Patient reports she has been eating a lot of Tums trying to help with the acid. She reports she is comes in because is just gotten worse. Onset/Timin -: month(s) Severity scale (0 -10): 3 Quality: burning Consistency: intermittent Improves with: none Worsens with: eating Associated Symptoms: nausea/vomiting. denies: fever/chills Treatments Prior to Arrival: none - Related Data Previous Rx's Medication Instructions Recorded Last Taken Type HYDROcodone/APAP 5-325 [[place] 1 each PO Q6HR PRN #20 tablet 01/03/20 Unknown Rx 5/325] Ibuprofen [Motrin] 800 mg PO Q8HR PRN #60 tablet 01/03/20 Unknown Rx Esomeprazole Magnesium [Nexium 20 mg PO QDAY #30 capsule. 09/09/20 Unknown Rx 24Hr] Ondansetron [Zofran Odt] 4 mg PO Q8HR #15 tab.rapdis 09/09/20 Unknown Rx Allergies Allergy/AdvReac Type Severity Reaction Status Date / Time No Known Allergies Allergy Verified 04/06/19 03:14 ED Review of Systems ROS: Stated complaint: CHEST PAIN/COUGH/THROAT PAIN Other details as noted in HPI Comment: All other systems reviewed and negative ED Past Medical Hx - Past Medical History Previous Medical History?: No - Surgical History Past Surgical History?: Yes Additional Surgical History: D&C, hernia repair, ear sx - Social History Smoking Status: Never Smoker Substance Use Type: None - Medications Home Medications: Home Medications Medication Instructions Recorded Confirmed Last Taken Type HYDROcodone/APAP 5-325 [[place] 1 each PO Q6HR PRN #20 tablet 01/03/20 Unknown Rx 5/325] Ibuprofen [Motrin] 800 mg PO Q8HR PRN #60 tablet 01/03/20 Unknown Rx Esomeprazole Magnesium [Nexium 20 mg PO QDAY #30 capsule. 09/09/20 Unknown Rx 24Hr] Ondansetron [Zofran Odt] 4 mg PO Q8HR #15 tab.rapdis 09/09/20 Unknown Rx ED Physical Exam - General Limitations: No Limitations General appearance: alert, in no apparent distress - Head Head exam: Present: atraumatic, normocephalic - Eye Eye exam: Present: normal appearance - ENT ENT exam: Present: mucous membranes moist - Expanded ENT Exam Expanded Throat exam: Positive: normal inspection. Negative: tonsillar erythema, tonsillomegaly, tonsillar exudate - Neck Neck exam: Present: normal inspection, full ROM - Respiratory Respiratory exam: Present: normal lung sounds bilaterally. Absent: respiratory distress - Cardiovascular Cardiovascular Exam: Present: regular rate, normal rhythm. Absent: systolic murmur, diastolic murmur, rubs, gallop - GI/Abdominal GI/Abdominal exam: Present: soft. Absent: distended, tenderness - Extremities Exam Extremities exam: Present: normal inspection - Back Exam Back exam: Present: normal inspection - Neurological Exam Neurological exam: Present: alert, oriented X3, normal gait - Psychiatric Psychiatric exam: Present: normal affect, normal mood - Skin Skin exam: Present: warm, dry, intact, normal color. Absent: rash ED Course Vital Signs 09/09/20 00:54 Temperature 97.7 F Pulse Rate 98 H Respiratory 18 Rate Blood Pressure 152/87 O2 Sat by Pulse 99 Oximetry ED Medical Decision Making - Lab Data Result diagrams: 09/09/20 01:45 - Medical Decision Making 30-year-old -Congol[place] female presents to the emergency room for epigastric discomfort with nausea and vomiting intermittently. Patient also complains of a cough and increased acid production. States anytime she eats food it just mares in her epigastric area and travels up to her throat. Patient states she started to get a cough. She reports she is her last menstrual period was 07/10/2020. She denies any vaginal bleeding or vaginal discharge. She is 7 para 2. She has not started care at this time. Patient reports she has been eating a lot of Tums trying to help with the acid. She reports she is comes in because is just gotten worse. Patient was given Mylanta 30 mL p.o. now. Patient be discharged home on Nexium information on avoiding spicy greasy tomato base acid foods and drinks. Patient is to follow-up with the [facility]. Critical care attestation.: If time is entered above; I have spent that time in minutes in the direct care of this critically ill patient, excluding procedure time. ED Disposition Clinical Impression: GERD (gastroesophageal reflux disease) Disposition: TO HOME OR SELFCARE Is pt being admited?: No Does the pt Need Aspirin: No Condition: Stable Instructions: Abdominal Pain (ED), Gastroesophageal Reflux Disease, Adult, [id number] Additional Instructions: Please take medications as prescribed. Recommend following is drink diet for GERD. Please follow-up with a [facility] or primary care provider. Prescriptions: Esomeprazole Magnesium [Nexium 24Hr] 20 mg PO QDAY #30 capsule. Ondansetron [Zofran Odt] 4 mg PO Q8HR #15 tab.rapdis Referrals: [facility] [Provider Group] - 3-5 Days [facility] [Provider Group] - 3-5 Days [facility] [Provider Group] - 3-5 Days
[2020-09-09] MEDS ORDERED: ALUM-MAG HYDROXIDE-SIMETHICONE 200-200-20MG/5ML ORAL LIQD 30 ML PO ONE (02:35)
[2020-09-09 02:49] LABS: Bilirubin,Urine NEG (Negative); Blood,Urine NEG (Negative); Color,Urine Straw (Yellow); Mucus,Urine FEW /HPF; Protein,Urine <15 mg/dL mg/dL (Negative); Urobilinogen,Urine < 2.0 mg/dL (<2.0)
== END 2020-09-09 02:45 | disposition home or self-care (01) ==
LOC: ED 00:06
DX: O99.611 Diseases of the digestive system complicating pregnancy, first trimester (principal); K21.9 Gastro-esophageal reflux disease without esophagitis; Z3A.00 Weeks of gestation of pregnancy not specified; Z98.890 Other specified postprocedural states; Z79.1 Long term (current) use of non-steroidal anti-inflammatories (NSAID); Z79.899 Other long term (current) drug therapy
CPT/HCPCS: 36415; 81001; 84702; 85025; 93005

== ENCOUNTER 2021-01-10 10:31 | Outpatient (CLI) | payer MEDICAID ==
[2021-01-10 11:13] VITALS: BP 122/71
[2021-01-10] MEDS ORDERED: LACTATED RINGERS 1,000 ML IV SCH (11:15)
[2021-01-10 12:22] LABS: Bilirubin,Urine NEG (Negative); Blood,Urine NEG (Negative); Color,Urine Straw (Yellow); Protein,Urine <15 mg/dL mg/dL (Negative); Urobilinogen,Urine < 2.0 mg/dL (<2.0); WBC,Urine < 1.0 /HPF (0.0-6.0)
== END 2021-01-10 13:10 | disposition home or self-care (01) ==
LOC: TRG 10:31 → APU 10:35 → TRG 13:10
PROVIDERS: ATTEND Obstetrics & Gynecology
DX: Z34.92 Encounter for supervision of normal pregnancy, unspecified, second trimester (principal); Z3A.27 27 weeks gestation of pregnancy
CPT/HCPCS: 59025; 81001

== ENCOUNTER 2021-03-22 | Outpatient (CLI) | payer MEDICAID ==
[2021-03-22 02:02] LABS: Bilirubin,Urine NEG (Negative); Blood,Urine NEG (Negative); Color,Urine Straw (Yellow); Protein,Urine <15 mg/dL mg/dL (Negative); Urobilinogen,Urine < 2.0 mg/dL (<2.0)
[2021-03-22 02:03] LABS: RBC,Urine < 1.0 /HPF (0.0-6.0); WBC,Urine < 1.0 /HPF (0.0-6.0)
[2021-03-22 02:22] LABS: Uric Acid 3.7 mg/dL (3.5-7.6)
[2021-03-22 02:48] VITALS: BP 128/71
[2021-03-22 02:56] LABS: Alanine Aminotransferase 10 units/L (7-56)
== END 2021-03-22 03:30 | disposition home or self-care (01) ==
LOC: TRG → APU 00:07 → TRG 03:30
PROVIDERS: ATTEND Obstetrics & Gynecology
DX: Z34.93 Encounter for supervision of normal pregnancy, unspecified, third trimester (principal); Z3A.37 37 weeks gestation of pregnancy
CPT/HCPCS: 36415; 59025; 81001; 82565; 83615; 84450; 84460; 84550

== ENCOUNTER 2021-03-26 09:04 | Inpatient (IN) | payer MEDICAID ==
[2021-03-26] MEDS ORDERED: ePHEDrine SULFATE 50 MG/1 ML INJ IV PRN (10:36)
[2021-03-26] MEDS ORDERED: MINERAL OIL 30 ML ORAL LIQD PO PRN (10:36)
[2021-03-26] MEDS ORDERED: TERBUTALINE 1 MG/1 ML INJ SUB-Q PRN (10:36)
[2021-03-26] MEDS ORDERED: DINOPROSTONE 10 MG VAG SUPP VG ONE (11:00)
[2021-03-26] MEDS ORDERED: OXYTOCIN DRIP 30 UNITS/500 ML BAG IV SCH (11:00)
[2021-03-26] MEDS ORDERED: CARBOPROST TROMETHAMINE 250 MCG/1 ML INJ IM PRN (11:00)
[2021-03-26] MEDS ORDERED: OXYTOCIN 10 UNIT/1 ML INJ IM PRN (11:00)
[2021-03-26] MEDS ORDERED: AMPICILLIN/NS 2 GM/100 ML 2 GM/100 ML BAG IV ONE (11:00)
[2021-03-26] MEDS ORDERED: miSOPROStol 200 MCG TAB PR PRN (11:00)
[2021-03-26] MEDS ORDERED: LOPERAMIDE 2 MG CAP PO PRN (11:00)
[2021-03-26] MEDS ORDERED: LIDOCAINE (2%) 20 MG/1 ML VIAL 20 ML MDV INFILTRATI ONE (11:00)
[2021-03-26] MEDS ORDERED: METHYLERGONOVINE MALEATE 0.2 MG/ML VIAL IM PRN (11:00)
[2021-03-26 11:05] LABS: Hematocrit 27.4 % (30.3-42.9); Hemoglobin 9.3 gm/dl (10.1-14.3); Mean Corpuscular HGB Conc 34 % (30-34); Mean Corpuscular Volume 83 fl (79-97); Platelet Count 161 K/mm3 (140-440); Red Blood Count 3.29 M/mm3 (3.65-5.03)
[2021-03-26 11:29] LABS: Red Cell Distribution Width 20.7 % (13.2-15.2)
[2021-03-26 11:51] LABS: Alanine Aminotransferase 10 units/L (7-56); Albumin 3.4 g/dL (3.9-5); Blood Urea Nitrogen 4 mg/dL (7-17); Hemolysis Index 5; Uric Acid 4.3 mg/dL (3.5-7.6)
[2021-03-26 11:52] LABS: BUN/Creatinine Ratio 10
[2021-03-26] MEDS: LACTATED RINGERS 1,000 ML IV SCH (12:03)
[2021-03-26 12:54] LABS: Bacteria,Urine 2+ /HPF (Negative); Bilirubin,Urine NEG (Negative); Blood,Urine NEG (Negative); Color,Urine Yellow (Yellow); Mucus,Urine FEW /HPF; Protein,Urine <15 mg/dL mg/dL (Negative)
[2021-03-26] MEDS ORDERED: FLUCONAZOLE 100 MG TAB PO ONE (13:05)
[2021-03-26] MEDS: ALUM-MAG HYDROXIDE-SIMETHICONE 200-200-20MG/5ML ORAL LIQD 30 ML PO PRN ×2 (13:56→17:40)
[2021-03-26] MEDS ORDERED: FLUCONAZOLE 200 MG TAB PO ONE (14:00)
--- NOTE | 2021-03-26 14:02 | History and Physical Report ---
History of Present Illness Date of examination: 03/26/21 Date of admission: 03/26/21 09:04 Chief complaint: -induced hypertension History of present illness: 30-year-old -0-3-2 at 38+3 weeks admitted for -induced hypertension. The patient is being induced currently with Cervidil. Her course is complicated by history of genital herpes and denies any recent outbreaks. She is also GBS positive. The patient initiated her care in the first trimester of her . Past History Past Medical History: no pertinent history Past Surgical History: D&C, other (Hernia repair) Social history: - Obstetrical History Expected Date of Delivery: 04/06/21 Actual Gestation: 38 Week(s) 3 Day(s) : 6 Para: 2 Hx # Term Pregnancies: 2 Number of Pregnancies: 0 Spontaneous Abortions: 3 Induced : 0 Number of Living Children: 2 Medications and Allergies Allergies Allergy/AdvReac Type Severity Reaction Status Date / Time No Known Allergies Allergy Verified 03/26/21 09:45 Home Medications Medication Instructions Recorded Confirmed Last Taken Type Vit-Fe Fumar-FA [ 1 tab PO QDAY 03/26/21 03/26/21 1 Day Ago History Vitamin] ~03/25/21 Active Meds: Active Medications Al Hydrox/Mg Hydrox/Simethicone (Alum-Mag Hydroxide-Simethicone [id number]/5ml Oral Liqd 30 Ml) 30 ml PO Q4H PRN PRN Reason: Indigestion Last Admin: 03/26/21 13:56 Dose: 30 ml Documented by: Butorphanol Tartrate (Butorphanol 2 Mg/1 Ml Inj) 2 mg IV Q2H PRN PRN Reason: Pain , Severe (7-10) Butorphanol Tartrate (Butorphanol 2 Mg/1 Ml Inj) 1 mg IV Q2H PRN PRN Reason: Pain, Moderate(4-6) LABOR PAIN Carboprost Tromethamine (Carboprost Tromethamine 250 Mcg/1 Ml Inj) 250 mcg IM ONCE PRN PRN Reason: Uterine Bleeding Ephedrine Sulfate (Ephedrine Sulfate 50 Mg/1 Ml Inj) 10 mg IV Q2M PRN PRN Reason: Hypotension Lactated Ringer's (Lactated Ringers) 1,000 mls @ 125 mls/hr IV DIRECT JULIAN Last Admin: 03/26/21 12:03 Dose: 125 mls/hr Documented by: Oxytocin/Sodium Chloride (Pitocin/Ns 30 Unit/500ml) 30 units in 500 mls @ 40 mls/hr IV TITR JULIAN; Protocol Ampicillin Sodium (Ampicillin/Ns 1 Gm/50 Ml) 1 gm in 50 mls @ 100 mls/hr IV Q4H JULIAN; Protocol Loperamide HCl (Loperamide 2 Mg Cap) 2 mg PO ONCE PRN PRN Reason: give with Hemabate Methylergonovine Maleate (Methylergonovine Maleate 0.2 Mg/Ml Vial) 0.2 mg IM ONCE PRN PRN Reason: Uterine Bleeding Mineral Oil (Mineral Oil 30 Ml Oral Liqd) 30 ml PO QHS PRN PRN Reason: Constipation Misoprostol (Misoprostol 200 Mcg Tab) 800 mcg [place] ONCE PRN PRN Reason: Uterine Bleeding Ondansetron HCl (Ondansetron 4 Mg/2 Ml Inj) 4 mg IV Q8H PRN PRN Reason: Nausea And Vomiting Oxytocin (Oxytocin 10 Unit/1 Ml Inj) 10 unit IM ONCE PRN PRN Reason: Uterine Bleeding Terbutaline Sulfate (Terbutaline 1 Mg/1 Ml Inj) 0.25 mg SUB-Q ONCE PRN PRN Reason: Hyperstimulation/Hypertonicity Review of Systems All systems: negative Genitourinary: no leakage of fluid, no contractions - Vital Signs Vital signs: Vital Signs Pulse Pulse Ox 87 98 03/26/21 09:35 03/26/21 09:35 Temp Pulse Resp BP Pulse Ox 97.9 F 90 17 130/68 98 03/26/21 09:39 03/26/21 13:57 03/26/21 09:39 03/26/21 13:28 03/26/21 13:57 - Physical Exam Breasts: Positive: deferred Cardiovascular: Regular rate Lungs: Positive: Clear to auscultation - Obstetrical Cervical Dilatation: 1 Results Result Diagrams: 03/26/21 10:30 03/26/21 10:30 Abnormal lab results 03/26/21 03/26/21 03/26/21 Range/Units 10:30 10:30 12:20 RBC 3.29 L (3.65-5.03) M/mm3 Hgb 9.3 L (10.1-14.3) gm/dl Hct 27.4 L (30.3-42.9) % RDW 20.7 H (13.2-15.2) % Carbon Dioxide 20 L (22-30) mmol/L BUN 4 L (7-17) mg/dL Creatinine 0.4 L (0.6-1.2) mg/dL Glucose 106 H (65-100) mg/dL Lactate Dehydrogenase 197 H (91-180) units/L Total Protein 6.2 L (6.3-8.2) g/dL Albumin 3.4 L (3.9-5) g/dL U Epithel Cells (Auto) 19.0 H (0-13.0) /HPF All other labs normal. Assessment and Plan - Patient Problems (1) induced hypertension Current Visit: Yes Status: Acute Plan to address problem: Admit for induction of labor
[2021-03-26] MEDS ORDERED: AMPICILLIN/NS 1 GM/50 ML 1 GM/50 ML BAG IV SCH (15:00)
[2021-03-26] MEDS: BUTORPHANOL 2 MG/1 ML INJ IV PRN (23:37)
[2021-03-27] MEDS: ONDANSETRON 4 MG/2 ML INJ IV PRN (02:02)
[2021-03-27] MEDS: BUTORPHANOL 2 MG/1 ML INJ IV PRN ×3 (02:46→23:13)
[2021-03-27] MEDS ORDERED: hydrALAZINE 20 MG/1 ML INJ IV PRN (02:52)
[2021-03-27] MEDS ORDERED: miSOPROStol 25 MCG TAB VG SCH (03:00)
[2021-03-27] MEDS: miSOPROStol 25 MCG TAB PO SCH ×3 (08:35→18:44)
--- NOTE | 2021-03-27 08:37 | Progress Note ---
Assessment and Plan - Patient Problems (1) induced hypertension Current Visit: Yes Status: Acute Plan to address problem: Continue Cytotec 50 mcg po every 4 hrs x 4 doses as tolerated Pain meds as desired per orders Continue to monitor B/P notify provider for SBP>160; DBP > 110 Anticipate (2) HSV-2 seropositive Current Visit: Yes Status: Acute Subjective - Subjective Date of service: 03/27/21 Principal diagnosis: IOL secondary to PIH Interval history: 30-year-old -0-3-2 at 38+3 weeks admitted for -induced hypertension. The patient is being induced currently with Cervidil. Her course is complicated by history of genital herpes and denies any recent outbreaks. She is also GBS positive. The patient initiated her care in the first trimester of her . Patient reports: movement normal, no new complaints, no loss of fluid, no vaginal bleeding, no contractions Objective - Vital Signs Vital Signs: Vital Signs - 12hr 03/26/21 03/26/21 03/26/21 22:59 23:27 23:45 Temperature Pulse Rate 78 75 93 H Respiratory Rate Blood Pressure 144/76 151/74 154/70 O2 Sat by Pulse Oximetry O2 Sat by Pulse Oximetry [ Bilateral] 03/26/21 03/26/21 03/27/21 23:47 23:59 00:11 Temperature Pulse Rate 96 H 87 96 H Respiratory Rate Blood Pressure 159/84 155/82 136/77 O2 Sat by Pulse Oximetry O2 Sat by Pulse Oximetry [ Bilateral] 03/27/21 03/27/21 03/27/21 00:20 00:29 00:40 Temperature Pulse Rate 92 H 90 82 Respiratory Rate Blood Pressure 145/83 141/82 142/70 O2 Sat by Pulse Oximetry O2 Sat by Pulse Oximetry [ Bilateral] 03/27/21 03/27/21 03/27/21 00:49 00:59 01:09 Temperature Pulse Rate 80 91 H 82 Respiratory Rate Blood Pressure 142/70 140/76 142/76 O2 Sat by Pulse Oximetry O2 Sat by Pulse Oximetry [ Bilateral] 03/27/21 03/27/21 03/27/21 01:19 01:30 02:02 Temperature Pulse Rate 83 82 75 Respiratory Rate Blood Pressure 134/75 148/79 153/84 O2 Sat by Pulse Oximetry O2 Sat by Pulse Oximetry [ Bilateral] 03/27/21 03/27/21 03/27/21 02:10 02:44 02:49 Temperature Pulse Rate 83 86 87 Respiratory Rate Blood Pressure 152/85 O2 Sat by Pulse 98 97 Oximetry O2 Sat by Pulse Oximetry [ Bilateral] 03/27/21 03/27/21 03/27/21 02:50 02:54 02:59 Temperature 97.8 F Pulse Rate 74 84 89 Respiratory Rate Blood Pressure 139/78 O2 Sat by Pulse 96 98 Oximetry O2 Sat by Pulse Oximetry [ Bilateral] 03/27/21 03/27/21 03/27/21 03:01 03:04 03:09 Temperature Pulse Rate 83 96 H 81 Respiratory Rate Blood Pressure 123/66 O2 Sat by Pulse 98 96 Oximetry O2 Sat by Pulse Oximetry [ Bilateral] 03/27/21 03/27/21 03/27/21 03:14 03:19 03:23 Temperature Pulse Rate 84 89 78 Respiratory Rate Blood Pressure 115/57 O2 Sat by Pulse 96 97 Oximetry O2 Sat by Pulse Oximetry [ Bilateral] 03/27/21 03/27/21 03/27/21 03:24 03:29 03:32 Temperature Pulse Rate 83 79 85 Respiratory Rate Blood Pressure 135/79 O2 Sat by Pulse 98 96 Oximetry O2 Sat by Pulse Oximetry [ Bilateral] 03/27/21 03/27/21 03/27/21 03:34 03:39 03:44 Temperature Pulse Rate 82 81 84 Respiratory Rate Blood Pressure O2 Sat by Pulse 96 96 96 Oximetry O2 Sat by Pulse Oximetry [ Bilateral] 03/27/21 03/27/21 03/27/21 03:46 03:49 03:54 Temperature Pulse Rate 86 81 78 Respiratory Rate Blood Pressure O2 Sat by Pulse 94 96 96 Oximetry O2 Sat by Pulse Oximetry [ Bilateral] 03/27/21 03/27/21 03/27/21 03:59 04:01 04:02 Temperature Pulse Rate 82 85 88 Respiratory Rate Blood Pressure 131/63 O2 Sat by Pulse 95 94 Oximetry O2 Sat by Pulse Oximetry [ Bilateral] 03/27/21 03/27/21 03/27/21 04:04 04:09 04:14 Temperature Pulse Rate 81 82 86 Respiratory Rate Blood Pressure O2 Sat by Pulse 96 95 96 Oximetry O2 Sat by Pulse Oximetry [ Bilateral] 03/27/21 03/27/21 03/27/21 04:19 04:24 04:29 Temperature Pulse Rate 83 84 81 Respiratory Rate Blood Pressure O2 Sat by Pulse 96 96 96 Oximetry O2 Sat by Pulse Oximetry [ Bilateral] 03/27/21 03/27/21 03/27/21 04:31 04:34 04:39 Temperature Pulse Rate 82 83 86 Respiratory Rate Blood Pressure 133/67 O2 Sat by Pulse 95 96 Oximetry O2 Sat by Pulse Oximetry [ Bilateral] 03/27/21 03/27/21 03/27/21 04:44 04:49 04:54 Temperature Pulse Rate 86 81 86 Respiratory Rate Blood Pressure O2 Sat by Pulse 96 96 95 Oximetry O2 Sat by Pulse Oximetry [ Bilateral] 03/27/21 03/27/21 03/27/21 04:59 05:00 05:04 Temperature Pulse Rate 84 92 H 91 H Respiratory Rate Blood Pressure 138/70 138/70 O2 Sat by Pulse 95 97 Oximetry O2 Sat by Pulse Oximetry [ Bilateral] 03/27/21 03/27/21 03/27/21 05:09 05:14 05:19 Temperature Pulse Rate 80 80 88 Respiratory Rate Blood Pressure O2 Sat by Pulse 96 96 96 Oximetry O2 Sat by Pulse Oximetry [ Bilateral] 03/27/21 03/27/21 03/27/21 05:24 05:29 05:31 Temperature Pulse Rate 79 86 79 Respiratory Rate Blood Pressure 130/72 O2 Sat by Pulse 96 96 Oximetry O2 Sat by Pulse Oximetry [ Bilateral] 03/27/21 03/27/21 03/27/21 05:34 05:39 05:44 Temperature Pulse Rate 88 85 79 Respiratory Rate Blood Pressure O2 Sat by Pulse 96 96 96 Oximetry O2 Sat by Pulse Oximetry [ Bilateral] 03/27/21 03/27/21 03/27/21 05:49 05:52 05:54 Temperature Pulse Rate 83 86 78 Respiratory Rate Blood Pressure O2 Sat by Pulse 96 94 96 Oximetry O2 Sat by Pulse Oximetry [ Bilateral] 03/27/21 03/27/21 03/27/21 05:59 06:01 06:04 Temperature Pulse Rate 81 71 82 Respiratory Rate Blood Pressure 133/73 O2 Sat by Pulse 96 97 Oximetry O2 Sat by Pulse Oximetry [ Bilateral] 03/27/21 03/27/21 03/27/21 06:09 06:14 06:19 Temperature Pulse Rate 80 82 83 Respiratory Rate Blood Pressure O2 Sat by Pulse 97 97 97 Oximetry O2 Sat by Pulse Oximetry [ Bilateral] 03/27/21 03/27/21 03/27/21 06:24 06:29 06:31 Temperature Pulse Rate 84 85 76 Respiratory Rate Blood Pressure 135/68 O2 Sat by Pulse 97 96 Oximetry O2 Sat by Pulse Oximetry [ Bilateral] 03/27/21 03/27/21 03/27/21 06:34 06:39 06:44 Temperature Pulse Rate 84 81 84 Respiratory Rate Blood Pressure O2 Sat by Pulse 96 97 96 Oximetry O2 Sat by Pulse Oximetry [ Bilateral] 03/27/21 03/27/21 03/27/21 06:49 06:54 06:55 Temperature Pulse Rate 79 90 90 Respiratory Rate Blood Pressure O2 Sat by Pulse 97 97 82 L Oximetry O2 Sat by Pulse Oximetry [ Bilateral] 03/27/21 03/27/21 03/27/21 07:00 07:05 07:10 Temperature Pulse Rate 92 H 88 91 H Respiratory Rate Blood Pressure O2 Sat by Pulse 81 L 83 L 99 Oximetry O2 Sat by Pulse Oximetry [ Bilateral] 03/27/21 03/27/21 03/27/21 07:15 07:20 07:24 Temperature Pulse Rate 84 87 Respiratory Rate Blood Pressure O2 Sat by Pulse 99 99 Oximetry O2 Sat by Pulse 99 Oximetry [ Bilateral] 03/27/21 03/27/21 03/27/21 07:25 07:27 07:30 Temperature Pulse Rate 89 80 89 Respiratory Rate Blood Pressure 151/79 O2 Sat by Pulse 99 99 Oximetry O2 Sat by Pulse Oximetry [ Bilateral] 03/27/21 03/27/21 03/27/21 07:32 07:35 07:40 Temperature Pulse Rate 82 90 95 H Respiratory Rate Blood Pressure 150/78 O2 Sat by Pulse 98 97 Oximetry O2 Sat by Pulse Oximetry [ Bilateral] 03/27/21 03/27/21 03/27/21 07:44 07:45 07:50 Temperature 98.2 F Pulse Rate 82 82 95 H Respiratory 16 Rate Blood Pressure O2 Sat by Pulse 99 99 99 Oximetry O2 Sat by Pulse Oximetry [ Bilateral] 03/27/21 03/27/21 03/27/21 07:55 08:00 08:01 Temperature Pulse Rate 90 89 83 Respiratory Rate Blood Pressure 158/78 O2 Sat by Pulse 98 98 Oximetry O2 Sat by Pulse Oximetry [ Bilateral] 03/27/21 03/27/21 03/27/21 08:05 08:10 08:15 Temperature Pulse Rate 84 77 79 Respiratory Rate Blood Pressure O2 Sat by Pulse 97 98 98 Oximetry O2 Sat by Pulse Oximetry [ Bilateral] 03/27/21 03/27/21 03/27/21 08:20 08:22 08:25 Temperature Pulse Rate 84 133 H 74 Respiratory Rate Blood Pressure O2 Sat by Pulse 99 84 88 Oximetry O2 Sat by Pulse Oximetry [ Bilateral] 03/27/21 03/27/21 08:29 08:30 Temperature Pulse Rate 66 Respiratory Rate Blood Pressure O2 Sat by Pulse 84 83 L Oximetry O2 Sat by Pulse Oximetry [ Bilateral] - Exam Breasts: normal Cardiovascular: Normal S1 Lungs: Normal air movement FHR: category 1 Uterine Contraction Monitor Mode: External Cervical Dilatation: 1 Cervical Effacement Percentage: 50 station: -3 Uterine Contraction Pattern: Irregular Uterine Tone Measurement Phase: Resting Uterine Contraction Intensity: Mild - Labs Labs: Abnormal Labs 03/26/21 03/26/21 03/26/21 10:30 10:30 12:20 RBC 3.29 L Hgb 9.3 L Hct 27.4 L RDW 20.7 H Carbon Dioxide 20 L BUN 4 L Creatinine 0.4 L Glucose 106 H Lactate Dehydrogenase 197 H Total Protein 6.2 L Albumin 3.4 L U Epithel Cells (Auto) 19.0 H Laboratory Results - last 24 hr 03/26/21 03/26/21 03/26/21 10:30 10:30 10:30 WBC 9.3 RBC 3.29 L Hgb 9.3 L Hct 27.4 L MCV 83 MCH 28 MCHC 34 RDW 20.7 H Plt Count 161 Sodium Potassium Chloride Carbon Dioxide Anion Gap BUN Creatinine Estimated GFR BUN/Creatinine Ratio Glucose Uric Acid Calcium Total Bilirubin AST ALT Alkaline Phosphatase Lactate Dehydrogenase Total Protein Albumin Albumin/Globulin Ratio Urine Color Urine Turbidity Urine pH Ur Specific [place] Urine Protein Urine Glucose (UA) Urine Ketones Urine Blood Urine Nitrite Urine Bilirubin Urine Urobilinogen Ur Leukocyte Esterase Urine WBC (Auto) Urine RBC (Auto) U Epithel Cells (Auto) Urine Bacteria (Auto) Urine Mucus Syphilis IgG Antibody Nonreactive Coronavirus (PCR) Blood Type O POSITIVE Antibody Screen Negative 03/26/21 03/26/21 03/26/21 10:30 10:36 12:20 WBC RBC Hgb Hct MCV MCH MCHC RDW Plt Count Sodium 139 Potassium 3.6 Chloride 102.5 Carbon Dioxide 20 L Anion Gap 20 BUN 4 L Creatinine 0.4 L Estimated GFR > 60 BUN/Creatinine Ratio 10 Glucose 106 H Uric Acid 4.3 Calcium 9.0 Total Bilirubin 0.30 AST 20 ALT 10 Alkaline Phosphatase 102 Lactate Dehydrogenase 197 H Total Protein 6.2 L Albumin 3.4 L Albumin/Globulin Ratio 1.2 Urine Color Yellow Urine Turbidity Slightly-cloudy Urine pH 7.0 Ur Specific [place] 1.014 Urine Protein <15 mg/dl Urine Glucose (UA) Neg Urine Ketones Neg Urine Blood Neg Urine Nitrite Neg Urine Bilirubin Neg Urine Urobilinogen 2.0 Ur Leukocyte Esterase Neg Urine WBC (Auto) 3.0 Urine RBC (Auto) 2.0 U Epithel Cells (Auto) 19.0 H Urine Bacteria (Auto) 2+ Urine Mucus Few Syphilis IgG Antibody Coronavirus (PCR) Negative Blood Type Antibody Screen
[2021-03-27] MEDS: LACTATED RINGERS 1,000 ML IV SCH ×2 (08:44→16:18)
[2021-03-27] MEDS ORDERED: OXYTOCIN DRIP 30 UNITS/500 ML BAG IV SCH (23:45)
[2021-03-28] MEDS: LACTATED RINGERS 1,000 ML IV SCH (01:40)
[2021-03-28] MEDS: BUTORPHANOL 2 MG/1 ML INJ IV PRN ×4 (07:37→14:28)
[2021-03-28] MEDS ORDERED: CALCIUM CARBONATE 500 MG TAB CHEW PO PRN ×2 (07:49→08:00)
[2021-03-28] MEDS ORDERED: SIMETHICONE 80 MG CHEW TAB ONE (07:59)
[2021-03-28] MEDS ORDERED: SIMETHICONE 80 MG CHEW TAB PO PRN (08:00)
[2021-03-28] MEDS ORDERED: AMPICILLIN/NS 2 GM/100 ML 2 GM/100 ML BAG IV ONE ×2 (12:25→22:00)
[2021-03-28] MEDS ORDERED: fentaNYL 100 MCG/2 ML INJ IV NR (15:18)
[2021-03-28] MEDS: ONDANSETRON 4 MG/2 ML INJ IV PRN (15:36)
--- NOTE | 2021-03-28 17:09 | Progress Note ---
Assessment and Plan - Patient Problems (1) induced hypertension Current Visit: Yes Status: Acute Plan to address problem: AROM @ 1700, clear fluids, tolerated well Epidural as desired per orders Continue to monitor B/P notify provider for SBP>160; DBP > 110 Anticipate (2) HSV-2 seropositive Current Visit: Yes Status: Acute (3) Anemia Current Visit: Yes Status: Acute Qualifiers: Anemia type: iron deficiency Plan to address problem: Asymptomatic Subjective - Subjective Date of service: 03/28/21 Principal diagnosis: IOL secondary to PIH Interval history: 30-year-old -0-3-2 at 38+3 weeks admitted for -induced hypertension. The patient is being induced currently with Cervidil. Her course is complicated by history of genital herpes and denies any recent outbreaks. She is also GBS positive. The patient initiated her care in the first trimester of her . Patient reports: new complaints, loss of fluid, movement normal, contractions (painful), no vaginal bleeding Objective - Vital Signs Vital Signs: Vital Signs - 12hr 03/28/21 03/28/21 03/28/21 05:56 06:11 07:21 Temperature Pulse Rate 71 69 78 Respiratory Rate Blood Pressure 136/70 138/81 141/76 Blood Pressure [Left] O2 Sat by Pulse Oximetry [ Bilateral] 03/28/21 03/28/21 03/28/21 07:24 07:41 08:00 Temperature 97.6 F Pulse Rate 77 Respiratory Rate Blood Pressure 148/74 Blood Pressure 141/76 [Left] O2 Sat by Pulse 99 Oximetry [ Bilateral] 03/28/21 03/28/21 03/28/21 09:06 09:47 10:07 Temperature Pulse Rate 71 88 66 Respiratory Rate Blood Pressure 139/77 139/77 140/75 Blood Pressure [Left] O2 Sat by Pulse Oximetry [ Bilateral] 03/28/21 03/28/21 03/28/21 12:00 12:03 12:06 Temperature 98.1 F Pulse Rate 69 68 Respiratory 16 Rate Blood Pressure 168/92 166/90 Blood Pressure [Left] O2 Sat by Pulse Oximetry [ Bilateral] 03/28/21 03/28/21 03/28/21 13:10 13:40 14:06 Temperature Pulse Rate 67 71 Respiratory 16 Rate Blood Pressure 144/78 131/61 Blood Pressure [Left] O2 Sat by Pulse Oximetry [ Bilateral] 03/28/21 03/28/21 03/28/21 14:33 14:38 15:10 Temperature Pulse Rate 75 77 68 Respiratory Rate Blood Pressure 154/80 149/74 151/74 Blood Pressure [Left] O2 Sat by Pulse Oximetry [ Bilateral] 03/28/21 03/28/21 03/28/21 15:27 15:40 16:16 Temperature 98.4 F Pulse Rate 60 67 Respiratory Rate Blood Pressure 140/83 135/65 Blood Pressure [Left] O2 Sat by Pulse Oximetry [ Bilateral] - Exam Breasts: deferred Cardiovascular: Regular rate Lungs: Normal air movement FHR: category 1 Uterine Contraction Monitor Mode: External Cervical Dilatation: 2 (vertex) Cervical Effacement Percentage: 90 station: -2 Uterine Contraction Frequency (min): 3-6 Uterine Contraction Pattern: Irregular Uterine Tone Measurement Phase: Resting Uterine Contraction Intensity: Mild Extremities: edema - Labs Labs: Abnormal Labs 03/26/21 03/26/21 03/26/21 10:30 10:30 12:20 RBC 3.29 L Hgb 9.3 L Hct 27.4 L RDW 20.7 H Carbon Dioxide 20 L BUN 4 L Creatinine 0.4 L Glucose 106 H Lactate Dehydrogenase 197 H Total Protein 6.2 L Albumin 3.4 L U Epithel Cells (Auto) 19.0 H
--- NOTE | 2021-03-28 17:57 | Anesthesia Consultation ---
Anesthesia Consult and Med Hx Date of service: 03/28/21 - Airway Anesthetic Teeth Evaluation: Poor ROM Head & Neck: Adequate Mental/Hyoid Distance: Adequate Mallampati Class: Class II Intubation Access Assessment: Good - Pulmonary Exam CTA: Yes - Cardiac Exam Cardiac Exam: RRR - Pre-Operative Health Status ASA Pre-Surgery Classification: ASA2 Proposed Anesthetic Plan: Epidural - Pulmonary Hx Smoking: No Hx Asthma: No Hx Respiratory Symptoms: No SOB: No COPD: No Home Oxygen Therapy: No Hx Pneumonia: No Hx Sleep Apnea: No - Cardiovascular System Hx Hypertension: Yes (2009 and current) Hx Coronary Artery Disease: No Hx Heart Attack/AMI: No Hx Angina: No Hx Percutaneous Transluminal Coronary Angioplasty (PTCA): No Hx Pacemaker: No Hx Internal Defibrillator: No Hx Valvular Heart Disease: No Hx Heart Murmur: No Hx Peripheral Vascular Disease: No - Central Nervous System Hx Neuromuscular Disorder: No Hx Seizures: No CVA: No Hx Back Pain: Yes Hx Psychiatric Problems: No - Gastrointestinal Hx Ulcer: No Hx Gastroesophageal Reflux Disease: Yes - Endocrine Hx Renal Disease: No Hx End Stage Renal Disease: No Hx Cirrhosis: No Hx Liver Disease: No Hx Insulin Dependent Diabetes: No Hx Non-Insulin Dependent Diabetes: No Hx Thyroid Disease: No Hx Hypothyroidism: No Hx Hyperthyroidism: No - Hematic Hx Anemia: No Hx Sickle Cell Disease: No - Other Systems Hx Alcohol Use: No Hx Substance Use: No Hx Cancer: No Hx Obesity: Yes
--- NOTE | 2021-03-28 17:59 | Progress Note ---
Labor Epidural - Labor Epidural Start Time: 17:25 Stop Time: 17:43 Performed by:: FLORECITA PINA Procedure: Patient is requesting a laboring epidural for laboring pain. Patient IDed, H&P reviewed, all questions and concerns were answered, and consent was signed. Timeout was performed at bedside. Patient in sitting position. Sterile prep and drape was performed. [3] ml of 1% lidocaine skin wheal at L[3]- L [4]. 18- gauge Artem epidural needle was advanced to loss of resistance with saline technique 6cm. Negative CSF negative blood. Epidural catheter advanced to [10] centimeters. [NEGATIVE] Aspiration [NEGATIVE] test dose. Sterile dressing applied. Patient tolerated procedure.
[2021-03-28] MEDS ORDERED: ePHEDrine SULFATE 50 MG/1 ML INJ IV PRN (18:02)
[2021-03-28] MEDS ORDERED: NALOXONE 2 MG/2 ML INJ IV PRN (18:02)
[2021-03-28] MEDS: fentaNYL-BUPIV 2 MCG/ML-0.125% 200 MCG/100 ML BAG EPIDURAL SCH (18:13)
[2021-03-28] MEDS ORDERED: AMPICILLIN/NS 1 GM/50 ML 1 GM/50 ML BAG IV SCH ×2 (22:00)
[2021-03-29] MEDS: LACTATED RINGERS 1,000 ML IV SCH ×2 (00:26→09:13)
[2021-03-29] MEDS: AMPICILLIN/NS 1 GM/50 ML 1 GM/50 ML BAG IV SCH ×3 (01:35→12:17)
[2021-03-29] MEDS: fentaNYL-BUPIV 2 MCG/ML-0.125% 200 MCG/100 ML BAG EPIDURAL SCH (01:42)
[2021-03-29] MEDS ORDERED: BUPIVACAINE/PF (0.25%) 2.5 MG/ML 10 ML VIAL INFILTRATI ONE (04:42)
--- NOTE | 2021-03-29 12:29 | Progress Note ---
Labor Epidural - Labor Epidural Start Time: 11:40 Stop Time: 11:59 Performed by:: FLORECITA PINA Procedure: Patient is requesting a replacement of laboring epidural. Patient IDed, H&P reviewed, all questions and concerns were answered. Timeout was performed at bedside. Patient in sitting position. Sterile prep and drape was performed. [4] ml of 1% lidocaine skin wheal at L[3]- L [4]. 18-gauge Artem epidural needle was advanced to loss of resistance with saline technique 6cm. Negative CSF negative blood. Epidural catheter advanced to [10] centimeters. [NEGATIVE] Aspiration [NEGATIVE] test dose. Sterile dressing applied. Patient tolerated procedure.
[2021-03-29] MEDS ORDERED: HYDROmorphone 1 MG/1 ML INJ IV PRN ×2 (13:03)
[2021-03-29] MEDS ORDERED: ONDANSETRON 4 MG/2 ML INJ IV PRN (13:03)
[2021-03-29] MEDS ORDERED: NALOXONE 0.4 MG/1 ML INJ IV PRN ×2 (13:03→14:47)
--- NOTE | 2021-03-29 13:03 | Anesthesia Day of Surgery ---
Anesthesia Day of Surgery - Day of Surgery Patient Examined: Yes Patient H&P Reviewed: Yes Patient is NPO: Yes Beta Blockers: No Cardiac Clearance: No Pulmonary Clearance: No Sree's Test: N/A
[2021-03-29] MEDS ORDERED: BICITRA ORAL LIQD 30ML ONE (13:06)
[2021-03-29] MEDS ORDERED: ceFAZolin/Water 2 GM/20 ML 2 GM/20 ML SYRINGE IV ONE (13:07)
[2021-03-29] MEDS ORDERED: FAMOTIDINE 20 MG/2 ML INJ IV ONE ×2 (13:07)
[2021-03-29] MEDS ORDERED: METOCLOPRAMIDE 10 MG/2 ML INJ ONE (13:07)
[2021-03-29] MEDS ORDERED: BICITRA ORAL LIQD 30ML PO ONE (13:07)
[2021-03-29] MEDS ORDERED: METOCLOPRAMIDE 10 MG/2 ML INJ IV ONE (13:07)
[2021-03-29] MEDS ORDERED: miSOPROStol 200 MCG TAB ONE (13:08)
[2021-03-29] MEDS ORDERED: CARBOPROST TROMETHAMINE 250 MCG/1 ML INJ IM ONE (13:09)
--- NOTE | 2021-03-29 13:09 | Progress Note ---
Assessment and Plan - Patient Problems (1) induced hypertension Current Visit: Yes Status: Acute Plan to address problem: Proceed with a primary delivery for arrest of dilatation Subjective - Subjective Principal diagnosis: IOL secondary to PIH Interval history: 30-year-old -0-3-2 at 38+3 weeks admitted for -induced hyperte nsion. The patient has undergone an extensive induction of labor with arrest of dilatation at 5 cm. She has elected to undergo a primary delivery. Patient reports: movement normal, contractions (painful), no vaginal bleeding Objective - Vital Signs Vital Signs: Vital Signs - 12hr 03/29/21 03/29/21 03/29/21 01:14 01:15 01:19 Temperature Pulse Rate 73 75 74 Blood Pressure 147/72 O2 Sat by Pulse 97 96 Oximetry O2 Sat by Pulse Oximetry [ Bilateral] 03/29/21 03/29/21 03/29/21 01:24 01:29 01:30 Temperature Pulse Rate 75 84 74 Blood Pressure 148/72 O2 Sat by Pulse 96 97 Oximetry O2 Sat by Pulse Oximetry [ Bilateral] 03/29/21 03/29/21 03/29/21 01:34 01:39 01:44 Temperature Pulse Rate 74 72 83 Blood Pressure O2 Sat by Pulse 96 96 96 Oximetry O2 Sat by Pulse Oximetry [ Bilateral] 03/29/21 03/29/21 03/29/21 01:45 01:49 01:54 Temperature Pulse Rate 71 72 70 Blood Pressure 140/68 O2 Sat by Pulse 98 97 Oximetry O2 Sat by Pulse Oximetry [ Bilateral] 03/29/21 03/29/21 03/29/21 01:59 02:00 02:04 Temperature Pulse Rate 71 71 73 Blood Pressure 141/75 O2 Sat by Pulse 98 98 Oximetry O2 Sat by Pulse Oximetry [ Bilateral] 03/29/21 03/29/21 03/29/21 02:09 02:14 02:15 Temperature Pulse Rate 71 72 72 Blood Pressure 142/77 O2 Sat by Pulse 98 98 Oximetry O2 Sat by Pulse Oximetry [ Bilateral] 03/29/21 03/29/21 03/29/21 02:19 02:24 02:29 Temperature Pulse Rate 72 71 80 Blood Pressure O2 Sat by Pulse 97 98 99 Oximetry O2 Sat by Pulse Oximetry [ Bilateral] 03/29/21 03/29/21 03/29/21 02:30 02:34 02:39 Temperature Pulse Rate 72 73 73 Blood Pressure 139/69 O2 Sat by Pulse 99 98 Oximetry O2 Sat by Pulse Oximetry [ Bilateral] 03/29/21 03/29/21 03/29/21 02:44 02:45 02:49 Temperature Pulse Rate 71 71 72 Blood Pressure 141/70 O2 Sat by Pulse 99 99 Oximetry O2 Sat by Pulse Oximetry [ Bilateral] 03/29/21 03/29/21 03/29/21 02:54 02:59 03:00 Temperature Pulse Rate 72 71 71 Blood Pressure 139/72 O2 Sat by Pulse 99 99 Oximetry O2 Sat by Pulse Oximetry [ Bilateral] 03/29/21 03/29/21 03/29/21 03:04 03:09 03:14 Temperature Pulse Rate 85 72 72 Blood Pressure O2 Sat by Pulse 99 98 98 Oximetry O2 Sat by Pulse Oximetry [ Bilateral] 03/29/21 03/29/21 03/29/21 03:15 03:19 03:24 Temperature Pulse Rate 69 78 73 Blood Pressure 139/71 O2 Sat by Pulse 98 98 Oximetry O2 Sat by Pulse Oximetry [ Bilateral] 03/29/21 03/29/21 03/29/21 03:29 03:30 03:34 Temperature Pulse Rate 72 69 72 Blood Pressure 135/69 O2 Sat by Pulse 97 99 Oximetry O2 Sat by Pulse Oximetry [ Bilateral] 03/29/21 03/29/21 03/29/21 03:39 03:45 03:47 Temperature 99.3 F Pulse Rate 76 77 Blood Pressure 130/63 O2 Sat by Pulse 98 99 Oximetry O2 Sat by Pulse Oximetry [ Bilateral] 03/29/21 03/29/21 03/29/21 03:50 03:55 04:00 Temperature Pulse Rate 73 74 73 Blood Pressure 134/70 O2 Sat by Pulse 98 98 98 Oximetry O2 Sat by Pulse Oximetry [ Bilateral] 03/29/21 03/29/21 03/29/21 04:05 04:10 04:15 Temperature Pulse Rate 76 83 74 Blood Pressure O2 Sat by Pulse 99 99 98 Oximetry O2 Sat by Pulse Oximetry [ Bilateral] 03/29/21 03/29/21 03/29/21 04:16 04:20 04:25 Temperature Pulse Rate 75 73 76 Blood Pressure 144/77 O2 Sat by Pulse 98 98 Oximetry O2 Sat by Pulse Oximetry [ Bilateral] 03/29/21 03/29/21 03/29/21 04:27 04:30 04:35 Temperature Pulse Rate 47 L 76 84 Blood Pressure 140/73 O2 Sat by Pulse 88 98 98 Oximetry O2 Sat by Pulse Oximetry [ Bilateral] 03/29/21 03/29/21 03/29/21 04:40 04:42 04:45 Temperature Pulse Rate 74 80 78 Blood Pressure O2 Sat by Pulse 99 91 98 Oximetry O2 Sat by Pulse Oximetry [ Bilateral] 03/29/21 03/29/21 03/29/21 04:46 04:50 04:55 Temperature Pulse Rate 77 71 72 Blood Pressure 150/69 O2 Sat by Pulse 100 96 Oximetry O2 Sat by Pulse Oximetry [ Bilateral] 03/29/21 03/29/21 03/29/21 05:00 05:01 05:05 Temperature Pulse Rate 70 71 72 Blood Pressure 157/72 O2 Sat by Pulse 96 96 Oximetry O2 Sat by Pulse Oximetry [ Bilateral] 03/29/21 03/29/21 03/29/21 05:10 05:15 05:20 Temperature Pulse Rate 74 72 73 Blood Pressure 156/70 O2 Sat by Pulse 96 96 95 Oximetry O2 Sat by Pulse Oximetry [ Bilateral] 03/29/21 03/29/21 03/29/21 05:25 05:30 05:35 Temperature Pulse Rate 72 73 75 Blood Pressure 155/67 O2 Sat by Pulse 96 96 96 Oximetry O2 Sat by Pulse Oximetry [ Bilateral] 03/29/21 03/29/21 03/29/21 05:40 05:45 05:50 Temperature Pulse Rate 74 74 76 Blood Pressure 142/64 O2 Sat by Pulse 96 97 96 Oximetry O2 Sat by Pulse Oximetry [ Bilateral] 03/29/21 03/29/21 03/29/21 05:55 06:00 06:05 Temperature Pulse Rate 75 76 76 Blood Pressure 151/68 O2 Sat by Pulse 96 95 96 Oximetry O2 Sat by Pulse Oximetry [ Bilateral] 03/29/21 03/29/21 03/29/21 06:10 06:15 06:17 Temperature Pulse Rate 76 79 76 Blood Pressure 137/60 O2 Sat by Pulse 95 95 94 Oximetry O2 Sat by Pulse Oximetry [ Bilateral] 03/29/21 03/29/21 03/29/21 06:20 06:25 06:26 Temperature Pulse Rate 79 76 77 Blood Pressure O2 Sat by Pulse 95 95 94 Oximetry O2 Sat by Pulse Oximetry [ Bilateral] 03/29/21 03/29/21 03/29/21 06:30 06:35 06:40 Temperature Pulse Rate 77 75 75 Blood Pressure 140/65 O2 Sat by Pulse 95 95 96 Oximetry O2 Sat by Pulse Oximetry [ Bilateral] 03/29/21 03/29/21 03/29/21 06:45 06:50 06:55 Temperature Pulse Rate 75 74 77 Blood Pressure 148/68 O2 Sat by Pulse 97 97 96 Oximetry O2 Sat by Pulse Oximetry [ Bilateral] 03/29/21 03/29/21 03/29/21 07:00 07:05 07:10 Temperature Pulse Rate 74 86 82 Blood Pressure 139/65 O2 Sat by Pulse 97 96 97 Oximetry O2 Sat by Pulse Oximetry [ Bilateral] 03/29/21 03/29/21 03/29/21 07:12 07:15 07:16 Temperature Pulse Rate 74 73 Blood Pressure 144/75 O2 Sat by Pulse 98 Oximetry O2 Sat by Pulse 97 Oximetry [ Bilateral] 03/29/21 03/29/21 03/29/21 07:20 07:25 07:30 Temperature Pulse Rate 78 75 75 Blood Pressure 149/67 O2 Sat by Pulse 98 98 98 Oximetry O2 Sat by Pulse Oximetry [ Bilateral] 03/29/21 03/29/21 03/29/21 07:35 07:40 07:45 Temperature Pulse Rate 82 79 74 Blood Pressure 151/71 O2 Sat by Pulse 97 98 98 Oximetry O2 Sat by Pulse Oximetry [ Bilateral] 03/29/21 03/29/21 03/29/21 07:50 07:55 08:00 Temperature Pulse Rate 75 79 73 Blood Pressure 152/83 O2 Sat by Pulse 98 99 99 Oximetry O2 Sat by Pulse Oximetry [ Bilateral] 03/29/21 03/29/21 03/29/21 08:05 08:10 08:15 Temperature Pulse Rate 71 75 76 Blood Pressure 150/70 O2 Sat by Pulse 99 97 97 Oximetry O2 Sat by Pulse Oximetry [ Bilateral] 03/29/21 03/29/21 03/29/21 08:20 08:25 08:30 Temperature Pulse Rate 77 74 76 Blood Pressure O2 Sat by Pulse 98 98 99 Oximetry O2 Sat by Pulse Oximetry [ Bilateral] 03/29/21 03/29/21 03/29/21 08:31 08:35 08:40 Temperature Pulse Rate 72 74 70 Blood Pressure 141/65 O2 Sat by Pulse 98 98 Oximetry O2 Sat by Pulse Oximetry [ Bilateral] 03/29/21 03/29/21 03/29/21 08:45 08:50 08:55 Temperature Pulse Rate 70 71 70 Blood Pressure 147/67 O2 Sat by Pulse 97 97 96 Oximetry O2 Sat by Pulse Oximetry [ Bilateral] 03/29/21 03/29/21 03/29/21 09:00 09:05 09:10 Temperature Pulse Rate 74 71 72 Blood Pressure 142/67 O2 Sat by Pulse 96 96 96 Oximetry O2 Sat by Pulse Oximetry [ Bilateral] 03/29/21 03/29/21 03/29/21 09:15 09:18 09:20 Temperature Pulse Rate 71 73 71 Blood Pressure 139/64 O2 Sat by Pulse 95 94 96 Oximetry O2 Sat by Pulse Oximetry [ Bilateral] 03/29/21 03/29/21 03/29/21 09:25 09:30 09:32 Temperature Pulse Rate 79 75 72 Blood Pressure 176/70 O2 Sat by Pulse 97 98 Oximetry O2 Sat by Pulse Oximetry [ Bilateral] 03/29/21 03/29/21 03/29/21 09:35 09:40 09:45 Temperature Pulse Rate 76 73 70 Blood Pressure O2 Sat by Pulse 98 97 98 Oximetry O2 Sat by Pulse Oximetry [ Bilateral] 03/29/21 03/29/21 03/29/21 09:47 09:50 09:55 Temperature Pulse Rate 70 72 78 Blood Pressure 130/60 O2 Sat by Pulse 96 97 Oximetry O2 Sat by Pulse Oximetry [ Bilateral] 03/29/21 03/29/21 03/29/21 10:00 10:05 10:10 Temperature Pulse Rate 71 73 77 Blood Pressure 134/71 O2 Sat by Pulse 97 96 96 Oximetry O2 Sat by Pulse Oximetry [ Bilateral] 03/29/21 03/29/21 03/29/21 10:15 10:20 10:25 Temperature Pulse Rate 74 77 76 Blood Pressure 147/70 O2 Sat by Pulse 96 97 98 Oximetry O2 Sat by Pulse Oximetry [ Bilateral] 03/29/21 03/29/21 03/29/21 10:30 10:35 10:40 Temperature Pulse Rate 74 77 74 Blood Pressure 139/69 O2 Sat by Pulse 98 97 88 Oximetry O2 Sat by Pulse Oximetry [ Bilateral] 03/29/21 03/29/21 03/29/21 10:45 10:50 10:52 Temperature Pulse Rate 54 L 75 Blood Pressure O2 Sat by Pulse 94 34 L 91 Oximetry O2 Sat by Pulse Oximetry [ Bilateral] 03/29/21 03/29/21 03/29/21 10:57 10:59 11:02 Temperature Pulse Rate 79 80 76 Blood Pressure O2 Sat by Pulse 97 94 98 Oximetry O2 Sat by Pulse Oximetry [ Bilateral] 03/29/21 03/29/21 03/29/21 11:07 11:12 11:13 Temperature Pulse Rate 76 76 84 Blood Pressure O2 Sat by Pulse 98 96 93 Oximetry O2 Sat by Pulse Oximetry [ Bilateral] 03/29/21 03/29/21 03/29/21 11:16 11:17 11:18 Temperature Pulse Rate 75 74 77 Blood Pressure 166/88 O2 Sat by Pulse 97 92 Oximetry O2 Sat by Pulse Oximetry [ Bilateral] 03/29/21 03/29/21 03/29/21 11:22 11:27 11:33 Temperature Pulse Rate 78 70 61 Blood Pressure O2 Sat by Pulse 97 85 83 L Oximetry O2 Sat by Pulse Oximetry [ Bilateral] 03/29/21 03/29/21 03/29/21 11:36 11:38 11:43 Temperature Pulse Rate 77 43 L Blood Pressure O2 Sat by Pulse 86 0 L 97 Oximetry O2 Sat by Pulse Oximetry [ Bilateral] 03/29/21 03/29/21 03/29/21 11:44 11:45 11:49 Temperature Pulse Rate 71 64 73 Blood Pressure 141/63 155/73 O2 Sat by Pulse 94 Oximetry O2 Sat by Pulse Oximetry [ Bilateral] 03/29/21 03/29/21 03/29/21 11:51 11:54 11:56 Temperature Pulse Rate 77 76 Blood Pressure 149/68 O2 Sat by Pulse 89 99 Oximetry O2 Sat by Pulse Oximetry [ Bilateral] 03/29/21 03/29/21 03/29/21 11:59 12:01 12:04 Temperature Pulse Rate 75 79 79 Blood Pressure 160/76 O2 Sat by Pulse 100 94 Oximetry O2 Sat by Pulse Oximetry [ Bilateral] 03/29/21 03/29/21 03/29/21 12:06 12:09 12:11 Temperature Pulse Rate 82 77 75 Blood Pressure 149/89 O2 Sat by Pulse 98 97 Oximetry O2 Sat by Pulse Oximetry [ Bilateral] 03/29/21 03/29/21 03/29/21 12:14 12:16 12:19 Temperature Pulse Rate 74 75 71 Blood Pressure 158/75 145/75 O2 Sat by Pulse 97 Oximetry O2 Sat by Pulse Oximetry [ Bilateral] 03/29/21 03/29/21 03/29/21 12:21 12:24 12:26 Temperature Pulse Rate 75 74 76 Blood Pressure 145/105 O2 Sat by Pulse 98 98 Oximetry O2 Sat by Pulse Oximetry [ Bilateral] 03/29/21 03/29/21 03/29/21 12:31 12:36 12:39 Temperature Pulse Rate 78 78 74 Blood Pressure 167/91 132/96 176/79 O2 Sat by Pulse 98 99 Oximetry O2 Sat by Pulse Oximetry [ Bilateral] 03/29/21 03/29/21 03/29/21 12:41 12:45 12:46 Temperature Pulse Rate 82 78 79 Blood Pressure 151/88 O2 Sat by Pulse 97 98 Oximetry O2 Sat by Pulse Oximetry [ Bilateral] 03/29/21 03/29/21 03/29/21 12:49 12:51 12:54 Temperature Pulse Rate 81 84 77 Blood Pressure 158/89 165/93 O2 Sat by Pulse 96 Oximetry O2 Sat by Pulse Oximetry [ Bilateral] 03/29/21 03/29/21 03/29/21 12:56 12:59 13:01 Temperature Pulse Rate 83 75 Blood Pressure 167/92 O2 Sat by Pulse 100 97 Oximetry O2 Sat by Pulse Oximetry [ Bilateral] 03/29/21 03/29/21 03/29/21 13:04 13:06 13:08 Temperature Pulse Rate 77 80 81 Blood Pressure 168/88 O2 Sat by Pulse 97 87 Oximetry O2 Sat by Pulse Oximetry [ Bilateral] - Labs Labs: Abnormal Labs 03/26/21 03/26/21 03/26/21 10:30 10:30 12:20 RBC 3.29 L Hgb 9.3 L Hct 27.4 L RDW 20.7 H Carbon Dioxide 20 L BUN 4 L Creatinine 0.4 L Glucose 106 H Lactate Dehydrogenase 197 H Total Protein 6.2 L Albumin 3.4 L U Epithel Cells (Auto) 19.0 H
[2021-03-29] MEDS ORDERED: LIDOCAINE MPF (2%) 20 MG/1 ML VIAL 5 ML ONE ×3 (13:10→14:03)
--- NOTE | 2021-03-29 13:12 | Procedure Note ---
OB Delivery Note - Delivery Date of Delivery: 03/29/21 Surgeon: AELX GARCIA - Section Preop diagnosis: arrest of dilation Postop diagnosis: same section procedure: section, primary low transverse Disposition: PACU - A at 1 minute: 7 at 5 minutes: 8 Infant Gender: Male (Weight 6 pounds 12 ounces)
--- NOTE | 2021-03-29 13:14 | Operative Report ---
Operative Report Operative Report: Date of surgery: March 29, 2021 Preoperative diagnosis: at 38+6 weeks; -induced hypertension; arrest of dilatation Postoperative diagnosis: Same as above Procedure: Primary low transverse delivery Surgeon: Zoe Owen M.D. Anesthesia: Regional Estimated blood loss: Default value Urine output: 300 mL IV fluids: 500 mL Findings: Liveborn male infant with Apgars of 7 and 8 weight 6 pounds 12 ounces Indications: 30-year-old -0-3-2 at 38+6 weeks admitted for induction of labor for -induced hypertension. The patient underwent multiple modalities for cervical ripening without significant change. She had arrest of dilatation of 5 cm Procedure: The patient was taken to the operating room and given regional anesthesia without complication. She was prepped and draped in a normal sterile fashion. A Pfannenstiel skin incision was made down to layer the fascia which was nicked in the midline extended laterally with the Bovie cautery. The superior aspect of the rectus fascia was grasped with Suleiman clamps x2 and the rectus muscles off sharply. This was done in inferior fashion as well. The rectus muscle midline and peritoneum entered bluntly. An Balta retractor was then inserted. A bladder blade was placed. The vesicouterine peritoneum was then entered sharply with Metzenbaum scissors. A bladder flap was created digitally. A low transverse uterine incision was then made and extended digitally. There was clear fluid upon entry into the uterine cavity. The head was delivered through the incision with fundal pressure. The cord was clamped and cut x2 and infant was passed off to pediatrics. The placenta was then manually extracted. The uterus was then exteriorized and cleared of clots and debris. The uterine incision was then closed in a running locked fashion with 0 Vicryl additional imbricating stitch was applied for 2 layer closure. The serosa was then reapproximated with 3-0 Vicryl. The posterior cul-de-sac was then copiously irrigated. The uterus was replaced back into the abdomen and pelvis were the gutters were then irrigated. The Balta retractor was then removed. The peritoneum was then reapproximated with 3-0 Vicryl incorporating the rectus muscle. The fascia was then closed with 0 Vicryl in a running fashion. The skin was then reapproximated with 3-0 Monocryl on a Maco needle subcuticular fashion. Steri-Strips to place across the incision and a Crede procedures performed at the end of the surgery. A pressure dressing was applied to the incision. The surgery productive of a liveborn male infant with Apgars of 7 and 8 weight 6 pounds 12 ounces. The patient was taken to the recovery room in stable condition. All sponge laps and needle counts correct x2.
[2021-03-29] MEDS ORDERED: LACTATED RINGERS 1,000 ML IV SCH (13:15)
[2021-03-29] MEDS ORDERED: ONDANSETRON 4 MG/2 ML INJ ONE ×2 (13:56)
[2021-03-29] MEDS ORDERED: OXYTOCIN DRIP 30 UNITS/500 ML BAG IV SCH ×2 (14:00→15:00)
[2021-03-29] MEDS ORDERED: SODIUM CHLORIDE 0.9% IRR 1,500 ML BOTTLE IR ONE (14:00)
[2021-03-29] MEDS ORDERED: ceFAZolin/Water 2 GM/20 ML 2 GM/20 ML SYRINGE IV NR (14:00)
[2021-03-29] MEDS ORDERED: WATER FOR IRRIG STERILE 1,500 ML BOTTLE IR ONE (14:00)
[2021-03-29] MEDS ORDERED: SUCCINYLCHOLINE CHLORIDE 200 MG/10 ML INJ MDV ONE (14:07)
[2021-03-29] MEDS ORDERED: propofoL 200 MG/20 ML VIAL IV ONE (14:07)
[2021-03-29] MEDS ORDERED: OXYTOCIN 10 UNIT/1 ML INJ ONE (14:19)
[2021-03-29] MEDS ORDERED: KETOROLAC 30 MG/1 ML INJ ONE (14:25)
[2021-03-29] MEDS ORDERED: dexAMETHasone 20 MG/5 ML VIAL ONE (14:25)
[2021-03-29] MEDS ORDERED: HYDROmorphone 1 MG/1 ML INJ ONE ×2 (14:28)
[2021-03-29] MEDS ORDERED: SODIUM BICARB 8.4% 50 MEQ/50 ML VIAL IV ONE (14:31)
[2021-03-29] MEDS ORDERED: IBUPROFEN 600 MG TAB PO PRN (14:47)
[2021-03-29] MEDS ORDERED: KETOROLAC 30 MG/1 ML INJ IV PRN (14:47)
[2021-03-29] MEDS ORDERED: WITCH HAZEL/ GLYCERIN PAD TP PRN (14:47)
[2021-03-29] MEDS ORDERED: LANOLIN/ZINC/DIMETHICONE (LANSINOH) 7 GM TP PRN (14:47)
[2021-03-29] MEDS ORDERED: ACETAMINOPHEN 325 MG TAB PO PRN (14:47)
[2021-03-29] MEDS ORDERED: MORPHINE 4 MG/1 ML INJ IV PRN (14:47)
[2021-03-29] MEDS ORDERED: MAGNESIUM HYDROXIDE (MOM) ORAL LIQD UDC PO PRN (14:47)
[2021-03-29] MEDS ORDERED: LACTATED RINGERS 1,000 ML ONE (17:07)
[2021-03-30 04:54] LABS: Hematocrit 22.6 % (30.3-42.9); Hemoglobin 7.5 gm/dl (10.1-14.3)
[2021-03-30] MEDS: oxyCODONE /ACETAMINOPHEN 5-325MG TAB PO PRN ×3 (07:55→22:45)
--- NOTE | 2021-03-30 11:47 | Post Anesthesia Evaluation ---
- Post Anesthesia Evaluation Patient Participated: Yes Airway Patent: Yes Stable Respiratory Function: Yes Nausea/Vomiting: No Temp > 96.8F: Yes Pain Manageable: Yes Adequeate Hydration: Yes Anesthesia Complications: No Block Receding Appropriately: Yes Patient on Ventilator: No
--- NOTE | 2021-03-30 11:53 | Progress Note ---
Assessment and Plan - Patient Problems (1) induced hypertension Current Visit: Yes Status: Acute (2) delivery delivered Current Visit: Yes Status: Acute Plan to address problem: Patient is doing well Routine postoperative care Subjective - Subjective Date of service: 03/30/21 Principal diagnosis: IOL secondary to PIH Interval history: Patient reports feeling well today. She is tolerating clear diet and has voided without difficulty. Her pain is well controlled. Patient reports: appetite normal, voiding normally, pain well controlled [place]: doing well Objective - Vital Signs Latest vital signs: Vital Signs Temp Pulse Resp BP BP Pulse Ox Pulse Ox 03/30/21 09:22 96 03/30/21 08:30 97.8 F 110 H 16 137/69 96 03/30/21 04:27 97.6 F 102 H 18 122/72 94 03/30/21 01:05 98.3 F 102 H 20 129/66 95 03/29/21 21:27 20 03/29/21 20:30 98 03/29/21 20:11 98.2 F 84 20 142/75 97 03/29/21 18:39 98 03/29/21 17:54 97.3 F L 77 18 145/71 100 03/29/21 16:00 98.8 F 77 20 167/79 03/29/21 15:45 80 18 167/75 03/29/21 15:30 80 18 169/80 03/29/21 15:15 79 18 168/75 03/29/21 15:10 80 18 168/94 03/29/21 15:05 83 18 171/105 03/29/21 14:58 98.2 F 79 18 166/95 03/29/21 13:31 78 92 03/29/21 13:29 82 177/68 03/29/21 13:26 78 92 03/29/21 13:24 77 189/83 03/29/21 13:21 79 94 03/29/21 13:19 78 197/93 03/29/21 13:17 78 94 03/29/21 13:16 81 94 03/29/21 13:14 73 159/93 03/29/21 13:11 82 100 03/29/21 13:09 167/89 03/29/21 13:08 81 87 03/29/21 13:06 80 97 03/29/21 13:04 77 168/88 07/30/21 13:01 75 97 03/29/21 12:59 167/92 03/29/21 12:56 83 100 03/29/21 12:54 77 165/93 03/29/21 12:51 84 96 03/29/21 12:49 81 158/89 03/29/21 12:46 79 98 03/29/21 12:45 78 151/88 03/29/21 12:41 82 97 03/29/21 12:39 74 176/79 03/29/21 12:36 78 132/96 99 03/29/21 12:31 78 167/91 98 03/29/21 12:26 76 98 03/29/21 12:24 74 145/105 03/29/21 12:21 75 98 03/29/21 12:19 71 145/75 03/29/21 12:16 75 97 03/29/21 12:14 74 158/75 03/29/21 12:11 75 97 03/29/21 12:09 77 149/89 03/29/21 12:06 82 98 03/29/21 12:04 79 94 03/29/21 12:01 79 100 03/29/21 11:59 75 160/76 03/29/21 11:56 76 99 03/29/21 11:54 77 149/68 Intake and Output 03/29/21 03/30/21 03/30/21 22:59 06:59 14:59 Intake Total 560 120 Output Total 1700 1200 Balance -1140 -1080 Intake: IV 200 Intake, Free Water 360 120 Output: Urine 1700 1200 Indwelling 600 Indwelling Catheter 1000 600 Other: Total, Output Amount 1000 600 - Exam Incision: Present: dressed - Labs Labs: Abnormal lab results 03/30/21 Range/Units 04:39 Hgb 7.5 L (10.1-14.3) gm/dl Hct 22.6 L (30.3-42.9) %
[2021-03-31] MEDS: oxyCODONE /ACETAMINOPHEN 5-325MG TAB PO PRN (06:40)
--- NOTE | 2021-03-31 11:38 | Progress Note ---
Assessment and Plan - Patient Problems (1) induced hypertension Current Visit: Yes Status: Acute Plan to address problem: Patient doing well Discharge home (2) delivery delivered Current Visit: Yes Status: Acute Subjective - Subjective Date of service: 03/31/21 Principal diagnosis: IOL secondary to PIH Interval history: Patient reports feeling well today. She is tolerating her diet. Patient reports: appetite normal, voiding normally, pain well controlled [place]: doing well Objective - Vital Signs Latest vital signs: Vital Signs Temp Pulse Resp BP Pulse Ox Pulse Ox 03/31/21 07:52 97.8 F 90 18 142/76 96 03/31/21 00:37 98.0 F 94 H 20 131/68 95 03/30/21 20:40 96 03/30/21 15:50 98.1 F 93 H 20 113/64 94 03/30/21 12:13 98.4 F 95 H 16 136/81 95 Intake and Output 03/30/21 03/31/21 03/31/21 22:59 06:59 14:59 Intake Total 240 360 Output Total 450 Balance -210 360 Intake: Oral 240 Intake, Free Water 360 Output: Urine 450 Void 450 Other: Total, Intake Amount 240 Total, Output Amount 150 # Voids Void 1 - Exam Abdomen: Present: normal appearance, soft
--- NOTE | 2021-03-31 11:39 | Discharge Summary ---
Providers - Providers Date of Admission: 03/26/21 09:04 Date of discharge: 03/31/21 Attending physician: CHEYENNE RUSSELL Primary care physician: CHEYENNE RUSSELL Hospitalization Reason for admission: induction of labor Delivery: Procedure: section, primary low transverse Discharge diagnosis: IUP at term delivered Hospital course: The patient was admitted for induction of labor secondary to -induced hypertension. The patient's intrapartum course was complicated by arrest of di latation at 5 cm. A primary delivery was performed. Postoperative course was uneventful. Condition at discharge: Good Disposition: [id number] TO HOME OR SELFCARE - Discharge Diagnoses (1) induced hypertension Status: Acute (2) delivery delivered Status: Acute Plan - Discharge Medications Prescriptions: Ibuprofen [Motrin] 800 mg PO Q8HR PRN #60 tablet PRN Reason: Pain , Severe (7-10) oxyCODONE /ACETAMINOPHEN [Percocet 5/325] 1 tab PO Q6HR PRN #30 tablet PRN Reason: Pain - Provider Discharge Summary Activity: no sex for 6 weeks, no heavy lifting 4 weeks, no strenuous exercise Diet: routine Instructions: routine Additional instructions: [] Smoking cessation referral if applicable(refer to patient education folder for contact #) [] Refer to [facility] Booklet Call your doctor immediately for: * Fever > 100.5 * Heavy vaginal bleeding ( >1 pad per hour) * Severe persistent headache * Shortness of breath * Reddened, hot, painful area to leg or breast * Drainage or odor from incision. * Keep incision clean and dry at all times and follow doctor's instructions regarding bathing/showering Schedule postoperative visit in 2 weeks - Follow up plan
[2021-03-31 12:41] VITALS: BP 136/81
== END 2021-03-31 14:00 | disposition home or self-care (01) | DRG 765 ==
LOC: LD 09:04 → APU 03-29 13:44 → OB 03-29 17:11
PROVIDERS: ADMIT Obstetrics & Gynecology; ATTEND Obstetrics & Gynecology
PROC: 10D00Z1 Extraction of Products of Conception, Low, Open Approach (ICD-10-PCS; principal; 2021-03-29)
DX: O13.4 Gestational [pregnancy-induced] hypertension without significant proteinuria, complicating childbirth (principal); O98.52 Other viral diseases complicating childbirth; B00.89 Other herpesviral infection; Z20.822 Contact with and (suspected) exposure to COVID-19; O62.0 Primary inadequate contractions; O99.62 Diseases of the digestive system complicating childbirth; O99.02 Anemia complicating childbirth; O99.214 Obesity complicating childbirth; Z3A.38 38 weeks gestation of pregnancy; Z37.0 Single live birth; D50.9 Iron deficiency anemia, unspecified
CPT/HCPCS: 36415; 59200; 80053; 81001; 83615; 84550; 85014; 85018; 85027; 86592; 86850; 86900; 86901; G0378; J0290; J0330; J0595; J1100; J1170; J1885; J2270; J2405; J2590; J2704; J2765; J3010; J7120; U0003